=== PATIENT | male | born 1935 | race Caucasian/White ===

== ENCOUNTER 2019-03-17 09:11 | Day surgery (SDC) | payer OTHER, MEDICARE ==
[2019-03-12 10:16] VITALS: BMI 25.0
[2019-03-17] MEDS: CYCLOPENTOLATE 2% OPHTH SOLN 2 ML BOTTLE ONE ×3 (09:55→10:05)
[2019-03-17] MEDS: PHENYLEPHRINE 2.5% OPHTH SOLN 15 ML BOTTLE ONE ×3 (09:55→10:05)
[2019-03-17] MEDS: TROPICAMIDE 1% OPHTH SOLN 15 ML BOTTLE ONE ×3 (09:55→10:05)
[2019-03-17] MEDS: CIPROFLOXACIN 0.3% EYE DROPS 5 ML BOTTLE ONE ×3 (09:55→10:05)
[2019-03-17 10:04] VITALS: TEMP 98.1
[2019-03-17] MEDS ORDERED: BSS (NA/CA/MG/K) BALANCED SALT SOLUTION OPHTH SOLN 15 ML BOTTLE ONE (10:43)
[2019-03-17] MEDS ORDERED: LIDOCAINE 1% P/F 10 MG/ML VIAL ONE (10:43)
[2019-03-17] MEDS ORDERED: NEO/POLYMYX B SULF/DEXAMETH OPHTHALMIC 5ML BOTTLE ONE (10:44)
[2019-03-17] MEDS ORDERED: CARBACHOL 0.01% INTRA-OCULAR 1.5 ML VIAL ONE (10:44)
[2019-03-17] MEDS ORDERED: MIDAZOLAM HCL 2 MG/2 ML SINGLE DOSE VIAL ONE (10:53)
[2019-03-17 11:48] VITALS: BP 118/78; PULSE 73
--- NOTE | 2019-03-18 10:50 | OP ---
DATE OF OPERATION: 03/17/2019 OPERATIVE PROCEDURE: Lens Phacoemulsification with Posterior Chamber Intraocular Lens Placement, Right Eye PREOPERATIVE DIAGNOSIS: Visually Significant Cataract of Right Eye POSTOPERATIVE DIAGNOSIS: Visually Significant Cataract of Right Eye SURGEON: Alan Davis M.D. ANESTHESIA: MAC PROCEDURE: The patient was brought to the operating room and placed under monitored anesthesia care by Anesthesia. A drop of Tetracaine was then placed over the right eye. The patient was then prepped and draped in the usual sterile manner. A speculum was then placed over the right eye. The eye was then well irrigated with copious amounts of BSS (balanced salt solution). The operating microscope was then moved into position. A paracentesis was performed using a 15 degree blade. At this point 0.5 mL of 1% preservative free-lidocaine was injected into the anterior chamber. Amvisc plus was then injected into the anterior chamber. A clear corneal incision was then formed using a 2.2 mm keratome. A capsulorrhexis was then performed in a continuous circular fashion beginning with a cystotome completed with an Utratas forceps. Hydrodissection was then performed using BSS on a cannula. The phaco probe was then introduced through the corneal wound and the cataract was removed using the phaco chop technique. Approximately 3 seconds of absolute phaco time was used. The remaining cortex was then removed using irrigation and aspiration with an I/A probe. The capsule was then filled with regular Amvisc and the capsule was noted to be intact. A previously selected foldable posterior chamber intraocular lens was then injected into the capsule through the corneal wound using a lens injector. It was then dialed into position using a Sinskey hook. The Amvisc was then removed using irrigation and aspiration. Miostat was then injected through the paracentesis to constrict the pupil. The paracentesis and corneal wound were then hydrated and noted to be water tight. A drop of Maxitrol was then placed over the eye. The speculum was removed and clear shield was taped over the eye. The patient tolerated the procedure well and there were no surgical complications. The patient was asked to follow up in my office the next day. ALAN DAVIS M.D. [id number]
== END 2019-03-17 12:15 | disposition home or self-care (01) ==
LOC: FASU 09:11
PROVIDERS: ATTEND Ophthalmology
PROC: 08RJ3JZ Replacement of Right Lens with Synthetic Substitute, Percutaneous Approach (ICD-10-PCS; principal; 2019-03-17 10:30)
DX: H26.8 Other specified cataract (principal)

== ENCOUNTER 2019-03-18 17:06 | Emergency (ER) | payer OTHER, MEDICARE, BC ==
[2019-03-18 17:49] VITALS: BP 149/93; PULSE 78; TEMP 98; BMI 25.0
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
[2019-03-18 19:04] LABS: BASO % 0.9 % (0-2.0); EOS % 1.1 % (0-4.5); HEMATOCRIT 40.6 % (35.4-49); HEMOGLOBIN 13.5 GM/dl (11.7-16.9); LYMPH % 15.5 % (8-40); MCH 29.7 pg (25.7-33.7); MCHC 33.1 g/dl (32.0-35.9); MEAN CELL VOLUME 89.6 fl (80-96); MEAN PLT VOLUME 10.3 fl (7.5-11.1); MONO % 13.8 % (3.8-10.2); NEUT % 68.7 % (42.8-82.8); PLATELET COUNT 375 K/MM3 (134-434); RBC 4.54 M/mm3 (4.00-5.60); WHITE BLOOD COUNT 11.2 K/mm3 (4.0-10.8)
[2019-03-18 19:21] LABS: ALBUMIN 3.5 g/dl (3.4-5.0); BILIRUBIN,TOTAL 0.7 mg/dl (0.2-1); CALCIUM 9.2 mg/dl (8.5-10); CREATININE 0.9 mg/dl (0.55-1.3); POTASSIUM 3.7 mmol/L (3.5-5.1); TOT PROT 7.2 g/dl (6.4-8.2)
--- NOTE | 2019-03-18 20:24 | PDOC ---
*Physical Exam - Vital Signs Last Vital Signs Temp Pulse Resp BP Pulse Ox 98 F 78 20 149/93 98 03/18/19 17:07 03/18/19 17:07 03/18/19 17:07 03/18/19 17:07 03/18/19 17:07 ED Treatment Course - LABORATORY CBC & Chemistry Diagram: 03/18/19 18:42 03/18/19 18:24 - ADDITIONAL ORDERS Additional order review: Laboratory Results 03/18/19 03/18/19 03/18/19 18:24 18:24 18:24 Sodium 134 L Potassium 3.7 Chloride 97 L Carbon Dioxide 28 Anion Gap 9 BUN 16.0 Creatinine 0.9 Est GFR (CKD-EPI)AfAm 92.51 Est GFR (CKD-EPI)NonAf 79.82 Random Glucose 105 Calcium 9.2 Total Bilirubin 0.7 AST 28 ALT 19 Alkaline Phosphatase 88 Creatine Kinase 106 Troponin I < 0.03 Total Protein 7.2 Albumin 3.5 03/18/19 18:42 RBC 4.54 MCV 89.6 MCHC 33.1 RDW 15.0 D MPV 10.3 Neutrophils % 68.7 Lymphocytes % 15.5 Monocytes % 13.8 H D Eosinophils % 1.1 Basophils % 0.9 ED Progress Note - Progress Note Progress Note: 03/18/19 20:23 CARE this patient was transferred to [place] at 1900 hrs. Patient is an 83-year-old male who comes in complaining of bilateral leg edema. Patient does have a history of similar symptoms in the past. Patient has a work-up pending including CBC, comp, BNP, chest x-ray, ultrasound Doppler of his legs bilateral. Patient is chest x-ray read by me no acute pathology Patient's ultrasound Doppler was negative for DVT in either leg. Patient discharged well follow-up with his primary care doctor. Discharge - Discharge Information Problems reviewed: Yes Clinical Impression/Diagnosis: Lower extremity edema Disposition: HOME - Admission No - Follow up/Referral - Patient Discharge Instructions Additional Instructions: It is important you follow-up with your primary care doctor give him a call in the morning. Return to the emergency department immediately with ANY new, persistent or worsening symptoms. Continue any medications as previously prescribed by your physician. You should follow up with your primary doctor as soon as possible regarding today's emergency department visit. . Please make sure your doctor reviews the results of your emergency evaluation. Thank you for coming to the Emergency Department today for your care. It was a pleasure to see you today. Please note that your evaluation is INCOMPLETE until you follow-up with your doctor. - Post Discharge Activity
--- NOTE | 2019-03-19 13:03 | EKG ---
Test Reason : Blood Pressure : / mmHG Vent. Rate : 083 BPM Atrial Rate : 083 BPM P-R Int : 136 ms QRS Dur : 086 ms QT Int : 372 ms P-R-T Axes : 018 -22 -11 degrees QTc Int : 437 ms NORMAL SINUS RHYTHM NONSPECIFIC ST ABNORMALITY Confirmed by SARAHY ODOM MD ([id number]) on 03/19/2019 1:02:51 PM Referred By: LAURIE Confirmed By:SARAHY ODOM MD
== END 2019-03-18 20:53 | disposition home or self-care (01) ==
LOC: FER 17:06
DX: M79.89 Other specified soft tissue disorders (principal); I10 Essential (primary) hypertension; E11.9 Type 2 diabetes mellitus without complications; L98.8 Other specified disorders of the skin and subcutaneous tissue; E07.9 Disorder of thyroid, unspecified
CPT/HCPCS: 36415; 71045-TC-FY; 80053; 82550; 83880; 84484; 85025; 93005; 93970-TC; 99284-25

== ENCOUNTER 2019-04-01 17:04 | Emergency (ER) | payer BC, MEDICARE, OTHER ==
[2019-04-01 17:45] VITALS: BP 146/92; PULSE 93; TEMP 97.1; BMI 25.2
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
[2019-04-01] MEDS ORDERED: IBUPROFEN 600 MG TABLET (FP) PO ONE ×2 (20:45→20:47)
== END 2019-04-01 20:24 | disposition home or self-care (01) ==
LOC: FER 17:04
DX: M25.551 Pain in right hip (principal); I10 Essential (primary) hypertension; E11.9 Type 2 diabetes mellitus without complications; E03.9 Hypothyroidism, unspecified; F17.210 Nicotine dependence, cigarettes, uncomplicated; V43.52XA Car driver injured in collision with other type car in traffic accident, initial encounter; Y93.89 Activity, other specified; Y92.412 Parkway as the place of occurrence of the external cause
CPT/HCPCS: 70450-TC; 70486-TC; 71046-TC-FY; 72125-TC; 73523-TC-FY; 99283-25

== ENCOUNTER 2019-04-11 16:31 | Emergency (ER) | payer OTHER, MEDICARE, BC ==
[2019-04-11] MEDS ORDERED: ACETAMINOPHEN 325 MG TABLET (FP) PO ONE (17:01)
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
[2019-04-11 17:44] VITALS: BP 159/102; PULSE 93; TEMP 97.7; BMI 25.7
[2019-04-11] MEDS ORDERED: ACETAMINOPHEN 500 MG TABLET (FP) ONE (17:47)
[2019-04-11] MEDS ORDERED: KETOROLAC TROMETHAMINE 60 MG/2 ML VIAL IM ONE (18:12)
[2019-04-11] MEDS ORDERED: KETOROLAC TROMETHAMINE 15 MG/ML VIAL ONE (18:16)
== END 2019-04-11 19:00 | disposition home or self-care (01) ==
LOC: FER 16:31
PROC: 3E0233Z Introduction of Anti-inflammatory into Muscle, Percutaneous Approach (ICD-10-PCS; principal; 2019-04-11)
DX: M25.551 Pain in right hip (principal); W18.39XA Other fall on same level, initial encounter; Y93.89 Activity, other specified; Y92.481 Parking lot as the place of occurrence of the external cause; F17.210 Nicotine dependence, cigarettes, uncomplicated; I10 Essential (primary) hypertension; E07.9 Disorder of thyroid, unspecified
CPT/HCPCS: 73523-TC-FY; 99281-25

== ENCOUNTER 2019-06-09 08:53 | Day surgery (SDC) | payer OTHER ==
[2019-06-04 15:02] VITALS: BMI 23.3
[2019-06-09] MEDS: CYCLOPENTOLATE 2% OPHTH SOLN 2 ML BOTTLE ONE ×3 (09:20→09:30)
[2019-06-09] MEDS: PHENYLEPHRINE 2.5% OPHTH SOLN 15 ML BOTTLE ONE ×3 (09:20→09:30)
[2019-06-09] MEDS: TROPICAMIDE 1% OPHTH SOLN 15 ML BOTTLE ONE ×3 (09:20→09:30)
[2019-06-09] MEDS: CIPROFLOXACIN 0.3% EYE DROPS 5 ML BOTTLE ONE ×3 (09:20→09:30)
[2019-06-09] MEDS ORDERED: MIDAZOLAM HCL 2 MG/2 ML SINGLE DOSE VIAL ONE (09:59)
[2019-06-09] MEDS ORDERED: CARBACHOL 0.01% INTRA-OCULAR 1.5 ML VIAL ONE (10:07)
[2019-06-09] MEDS ORDERED: BSS (NA/CA/MG/K) BALANCED SALT SOLUTION OPHTH SOLN 15 ML BOTTLE ONE (10:07)
[2019-06-09] MEDS ORDERED: LIDOCAINE 1% P/F 10 MG/ML VIAL ONE (10:07)
[2019-06-09] MEDS ORDERED: NEO/POLYMYX B SULF/DEXAMETH OPHTHALMIC 5ML BOTTLE ONE (10:07)
[2019-06-09] MEDS ORDERED: TETRACAINE 0.5% OPHTH SOLN 2 ML BOTTLE ONE (10:07)
[2019-06-09 12:32] VITALS: BP 136/69; PULSE 62; TEMP 98.4
--- NOTE | 2019-06-09 16:52 | OP ---
DATE OF OPERATION: 06/09/2019 OPERATIVE PROCEDURE: Lysis of Posterior Iris Lens Synechia and Lens Phacoemulsification with Posterior Chamber Intraocular Lens Placement, Left Eye PREOPERATIVE DIAGNOSIS: Visually Significant Cataract and Posterior Synechia of Left Eye POSTOPERATIVE DIAGNOSIS: Visually Significant Cataract and Posterior Synechia of Left Eye SURGEON: Alan Davis M.D. ANESTHESIA: MAC ANESTHESIOLOGIST: PROCEDURE: The patient was brought to the operating room and placed under monitored anesthesia care by Anesthesia. A drop of Tetracaine was then placed over the left eye. The patient was then prepped and draped in the usual sterile manner. A speculum was then placed over the left eye. The eye was then well irrigated with copious amounts of BSS (balanced salt solution). The operating microscope was then moved into position. A paracentesis was performed using a 15 degree blade. At this point, 0.5 mL of 1% preservative-free lidocaine was injected into the anterior chamber. Amvisc plus was then injected into the anterior chamber. A clear corneal incision was then formed using a 2.2 mm keratome. A cyclodialysis spatula was then used to break the posterior synechia. Two [employer] EXTENDED STAYSglen iris hooks were then used to stretch the iris. More Amvisc plus was then injected into the anterior chamber. A capsulorrhexis was then performed in a continuous circular fashion beginning with a cystotome and completed with an Utrata's forceps. Hydrodissection was then performed using BSS on a cannula. The phaco probe was then introduced through the corneal wound and the cataract was removed using the phaco chop technique. Approximately 3 seconds of absolute phaco time was used. The remaining cortex was then removed using irrigation and aspiration with an I/A probe. The capsule was then filled with regular Amvisc and the capsule was noted to be intact. A previously selected foldable posterior chamber intraocular lens was then injected into the capsule through the corneal wound using a lens injector. It was then dialed into position using a [place] hook. The Amvisc was then removed using irrigation and aspiration. Miostat was then injected through the paracentesis to constrict the pupil. The paracentesis and corneal wound were then hydrated and noted to be water tight. A drop of Maxitrol was then placed over the eye. The speculum was removed and clear shield was taped over the eye. The patient tolerated the procedure well and there were no surgical complications. The patient was asked to follow up in my office the next day. ALAN DAVIS M.D. [id number]
== END 2019-06-09 12:05 | disposition home or self-care (01) ==
LOC: FASU 08:53
PROVIDERS: ATTEND Ophthalmology
PROC: 08RK3JZ Replacement of Left Lens with Synthetic Substitute, Percutaneous Approach (ICD-10-PCS; principal; 2019-06-09 10:29)
DX: H26.8 Other specified cataract (principal); H21.542 Posterior synechiae (iris), left eye

== ENCOUNTER 2020-04-28 16:04 | Emergency (ER) | payer OTHER, BC | END 2020-04-28 17:49 | disposition home or self-care (01) | LOC: JVIRT 16:04 | DX: Z11.52 Encounter for screening for COVID-19 (principal) | CPT/HCPCS: 36415; 86769; C9803; G2012-GT; U0003 ==

== ENCOUNTER 2020-10-03 01:34 | Emergency (ER) | payer OTHER ==
[2020-10-03 01:57] VITALS: BP 139/73; PULSE 76; TEMP 98.7; BMI 24.7
[2020-10-03] MEDS ORDERED: ACETAMINOPHEN 500 MG TABLET (FP) ONE (03:23)
[2020-10-03] MEDS ORDERED: ACETAMINOPHEN 500 MG TABLET (FP) PO ONE (03:23)
== END 2020-10-03 03:30 | disposition home or self-care (01) ==
LOC: FER 01:34
DX: S62.645A Nondisplaced fracture of proximal phalanx of left ring finger, initial encounter for closed fracture (principal)
CPT/HCPCS: 72050-TC-FY; 73140-TC-LT-FY; 73523-TC-FY; 99285-25

== ENCOUNTER 2020-11-30 02:03 | Inpatient (IN) | payer OTHER ==
[2020-11-30] MEDS: SODIUM CHLORIDE 1,000 ML IV SCH ×2 (03:00→22:25)
[2020-11-30 04:06] LABS: BASO % 1.1 % (0-2.0); EOS % 1.9 % (0-4.5); HEMATOCRIT 38.7 % (35.4-49); HEMOGLOBIN 13.3 GM/dL (11.7-16.9); MCH 30.6 pg (25.7-33.7); MCHC 34.3 g/dl (32.0-35.9); MEAN CELL VOLUME 89.4 fl (80-96); MEAN PLT VOLUME 9.6 fl (7.5-11.1); PLATELET COUNT 297 10^3/uL (134-434); RBC 4.33 M/mm3 (4.00-5.60); RDW 15.8 % (11.9-15.9); WHITE BLOOD COUNT 8.7 K/mm3 (4.0-10.0)
[2020-11-30 04:15] LABS: INR 0.92 (0.83-1.09); PROTHROMBIN TIME (PATIENT) 11.3 SEC (9.7-13.0)
[2020-11-30 04:27] LABS: CHLORIDE 98 mmol/L (98-107); SODIUM 133 mmol/L (136-145)
[2020-11-30 04:30] LABS: ALBUMIN 3.2 g/dl (3.4-5.0); ANION GAP 13 MMOL/L (8-16); BLOOD UREA NITROGEN 26.1 mg/dL (7-18); CALCIUM 8.5 mg/dL (8.5-10.1); CO2 22 mmol/L (21-32); GLUCOSE,RANDOM 69 mg/dL (74-106)
[2020-11-30 04:33] LABS: SGOT/AST 22 U/L (15-37); SGPT/ALT 23 U/L (13-61)
[2020-11-30 04:35] LABS: BILIRUBIN,TOTAL 0.3 mg/dL (0.2-1); TOT PROT 7.9 g/dl (6.4-8.2)
[2020-11-30 04:36] LABS: ALK PHOS 87 U/L (45-117)
[2020-11-30] MEDS ORDERED: PATIENT'S OWN MEDICATION (NON-FORMULARY) (Olmesartan/Hydrochlorothiazide [Benicar Hct 40-2 PO SCH (10:15)
[2020-11-30] MEDS ORDERED: LOSARTAN POTASSIUM 50 MG TABLET PO SCH (10:30)
[2020-11-30] MEDS ORDERED: HYDROCHLOROTHIAZIDE 25 MG TABLET (FP) PO SCH (10:30)
[2020-11-30] MEDS: INSULIN (NOVOLOG) ASPART 100 UNITS/ML 10ML VIAL SQ SCH ×3 (10:44→22:23)
[2020-11-30 11:17] LABS: BASO % 2.5 % (0-2.0); EOS % 5.3 % (0-4.5); HEMATOCRIT 37.6 % (35.4-49); HEMOGLOBIN 12.1 GM/dl (11.7-16.9); LYMPH % 20.9 % (8-40); MCH 29.7 pg (25.7-33.7); MCHC 32.3 g/dl (32.0-35.9); MEAN CELL VOLUME 91.8 fl (80-96); MEAN PLT VOLUME 9.4 fl (7.5-11.1); MONO % 19.2 % (3.8-10.2); NEUT % 52.1 % (42.8-82.8); PLATELET COUNT 294 10^3/uL (134-434); RBC 4.09 M/mm3 (4.00-5.60); WHITE BLOOD COUNT 7.3 K/mm3 (4.0-10.8)
[2020-11-30 11:36] LABS: BILIRUBIN,TOTAL 0.5 mg/dl (0.2-1); CALCIUM 8.7 mg/dl (8.5-10); MAGNESIUM 1.5 mg/dL (1.8-2.4); TOT PROT 6.8 g/dl (6.4-8.2)
[2020-12-01 00:23] VITALS: BMI 26.3
[2020-12-01] MEDS: SODIUM CHLORIDE 1,000 ML IV SCH ×2 (00:44→06:57)
[2020-12-01] MEDS: LEVOTHYROXINE NA 50 MCG TABLET (FP) PO SCH (06:50)
[2020-12-01] MEDS ORDERED: INSULIN (NOVOLOG) ASPART 100 UNITS/ML 10ML VIAL SQ SCH (07:00)
[2020-12-01] MEDS ORDERED: LEVOTHYROXINE NA 50 MCG TABLET (FP) PO SCH (07:00)
[2020-12-01 09:34] LABS: HEMATOCRIT 36.9 % (35.4-49); HEMOGLOBIN 12.5 GM/dL (11.7-16.9); MCH 30.7 pg (25.7-33.7); MCHC 33.8 g/dl (32.0-35.9); MEAN CELL VOLUME 90.9 fl (80-96); MEAN PLT VOLUME 9.6 fl (7.5-11.1); PLATELET COUNT 292 10^3/uL (134-434); RBC 4.06 M/mm3 (4.00-5.60); RDW 15.9 % (11.9-15.9); WHITE BLOOD COUNT 6.1 K/mm3 (4.0-10.0)
[2020-12-01] MEDS: LOSARTAN POTASSIUM 50 MG TABLET PO SCH (10:10)
[2020-12-01] MEDS: HYDROCHLOROTHIAZIDE 25 MG TABLET (FP) PO SCH (10:10)
[2020-12-01 10:48] LABS: ANISOCYTOSIS 1+; MACROCYTOSIS 1+; PLATELET ESTIMATE NORMAL
[2020-12-01 12:34] LABS: BLOOD UREA NITROGEN 14.5 mg/dL (7-18); CALCIUM 8.3 mg/dL (8.5-10.1); MAGNESIUM 1.8 mg/dL (1.8-2.4)
[2020-12-01 12:38] LABS: CREATININE 0.9 mg/dL (0.55-1.3)
[2020-12-02] MEDS: LEVOTHYROXINE NA 50 MCG TABLET (FP) PO SCH (06:10)
[2020-12-02] MEDS: HYDROCHLOROTHIAZIDE 25 MG TABLET (FP) PO SCH (09:16)
[2020-12-02] MEDS: LOSARTAN POTASSIUM 50 MG TABLET PO SCH (09:16)
[2020-12-02 09:35] LABS: HEMATOCRIT 38.8 % (35.4-49); HEMOGLOBIN 13.1 GM/dL (11.7-16.9); MCH 30.8 pg (25.7-33.7); MCHC 33.7 g/dl (32.0-35.9); MEAN CELL VOLUME 91.4 fl (80-96); MEAN PLT VOLUME 9.6 fl (7.5-11.1); PLATELET COUNT 301 10^3/uL (134-434); RBC 4.24 M/mm3 (4.00-5.60); RDW 15.8 % (11.9-15.9); WHITE BLOOD COUNT 6.7 K/mm3 (4.0-10.0)
[2020-12-02 10:12] LABS: BLOOD UREA NITROGEN 13.8 mg/dL (7-18); CALCIUM 8.9 mg/dL (8.5-10.1)
[2020-12-02 10:17] LABS: CREATININE 0.9 mg/dL (0.55-1.3)
[2020-12-02 14:19] VITALS: BP 112/76; PULSE 74; TEMP 97.6
== END 2020-12-02 15:39 | disposition home or self-care (01) | DRG 379 ==
LOC: FER 02:03 → FM/S 07:23 → J6S 20:34
PROVIDERS: ADMIT Internal Medicine; ATTEND Internal Medicine
DX: K57.91 Diverticulosis of intestine, part unspecified, without perforation or abscess with bleeding (principal); I10 Essential (primary) hypertension; E03.9 Hypothyroidism, unspecified; R35.0 Frequency of micturition; N40.1 Benign prostatic hyperplasia with lower urinary tract symptoms; F12.90 Cannabis use, unspecified, uncomplicated
CPT/HCPCS: 36415; 71045-TC-FY; 80048; 80053; 82272; 82550; 82962; 83735; 84484; 85025; 85027; 85610; 85730; 86850; 86900; 86901; 93005; 99285-25; C9803; U0003; U0005

== ENCOUNTER 2021-10-14 01:52 | Emergency (ER) | payer OTHER ==
[2021-10-14 02:02] VITALS: BP 132/75; PULSE 69; TEMP 97.9; BMI 24.2
[2021-10-14 04:20] LABS: BASO % 0.9 % (0-2.0); HEMATOCRIT 39.9 % (35.4-49); HEMOGLOBIN 13.5 GM/dL (11.7-16.9); LYMPH % 23.4 % (8-40); MCH 30.6 pg (25.7-33.7); MCHC 33.7 g/dl (32.0-35.9); MEAN CELL VOLUME 90.8 fl (80-96); MONO % 12.1 % (3.8-10.2); NEUT % 62.6 % (42.8-82.8); PH,URINE 7.5 (5.0-8.0); PLATELET COUNT 321 10^3/uL (134-434); RBC 4.39 M/mm3 (4.00-5.60); RDW 16.6 % (11.9-15.9); URINE APPEARANCE CLOUDY; URINE BILIRUBIN NEGATIVE (NEGATIVE); URINE COLOR YELLOW; URINE GLUCOSE (UA) NEGATIVE (NEGATIVE); URINE KETONE NEGATIVE (NEGATIVE); URINE LEUK ESTERASE NEGATIVE (NEGATIVE); URINE NITRITE NEGATIVE (NEGATIVE); URINE PROTEIN NEGATIVE (NEGATIVE); WHITE BLOOD COUNT 8.6 K/mm3 (4.0-10.0)
[2021-10-14 04:46] LABS: CALCIUM 9.2 mg/dL (8.5-10.1)
[2021-10-14 04:47] LABS: ALBUMIN 3.1 g/dl (3.4-5.0); BLOOD UREA NITROGEN 12.9 mg/dL (7-18)
[2021-10-14 04:50] LABS: CREATININE 0.9 mg/dL (0.55-1.3)
[2021-10-14 04:51] LABS: BILIRUBIN,TOTAL 0.2 mg/dL (0.2-1); TOT PROT 9.4 g/dl (6.4-8.2)
== END 2021-10-14 05:13 | disposition left against medical advice (07) ==
LOC: JER 01:52
DX: F10.99 Alcohol use, unspecified with unspecified alcohol-induced disorder (principal)
CPT/HCPCS: 36415; 70450-TC; 72125-TC; 80053; 81003; 84484; 85025; 87086; 87186; 99281-25

== ENCOUNTER 2021-11-16 22:28 | Inpatient (IN) | payer OTHER ==
[2021-11-17] MEDS ORDERED: ACETAMINOPHEN 1000 MG/100 ML BAG IVPB ONE (00:11)
[2021-11-17] MEDS ORDERED: ACETAMINOPHEN INJECTION 100 ML IVPB ONE (00:53)
[2021-11-17 01:05] LABS: BASO % 0.4 % (0-2.0); EOS % 0.3 % (0-4.5); HEMATOCRIT 37.3 % (35.4-49); HEMOGLOBIN 12.8 GM/dL (11.7-16.9); LYMPH % 12.3 % (8-40); MCH 31.5 pg (25.7-33.7); MCHC 34.3 g/dl (32.0-35.9); MEAN CELL VOLUME 91.6 fl (80-96); MEAN PLT VOLUME 9.6 fl (7.5-11.1); MONO % 10.1 % (3.8-10.2); NEUT % 76.9 % (42.8-82.8); PLATELET COUNT 274 10^3/uL (134-434); RBC 4.07 M/mm3 (4.00-5.60); RDW 16.7 % (11.9-15.9)
[2021-11-17 01:16] LABS: INR 0.94 (0.83-1.09); PROTHROMBIN TIME (PATIENT) 10.8 SEC (9.7-13.0)
[2021-11-17 01:18] LABS: ACTIVATED PTT 26.7 SECONDS (25.2-36.5)
[2021-11-17 01:22] LABS: CHLORIDE 105 mmol/L (98-107); SODIUM 138 mmol/L (136-145)
[2021-11-17 01:24] LABS: ANION GAP 10 MMOL/L (8-16); CALCIUM 8.8 mg/dL (8.5-10.1); CO2 23 mmol/L (21-32); GLUCOSE,RANDOM 78 mg/dL (74-106)
[2021-11-17 01:25] LABS: ALBUMIN 2.9 g/dl (3.4-5.0); BLOOD UREA NITROGEN 38.7 mg/dL (7-18)
[2021-11-17 01:27] LABS: CREATININE 3.2 mg/dL (0.55-1.3); SGPT/ALT 20 U/L (13-61)
[2021-11-17 01:28] LABS: SGOT/AST 28 U/L (15-37)
[2021-11-17 01:29] LABS: BILIRUBIN,TOTAL 0.4 mg/dL (0.2-1); TOT PROT 9.1 g/dl (6.4-8.2)
[2021-11-17 01:30] LABS: ALK PHOS 113 U/L (45-117)
[2021-11-17] MEDS ORDERED: SODIUM CHLORIDE 0.9% 500 ML INFUS.BAG IV ONE (01:52)
[2021-11-17] MEDS ORDERED: SODIUM CHLORIDE 1,000 ML IV SCH (04:30)
[2021-11-17] MEDS: ALBUTEROL SO4 2.5/IPRATROPIUM 0.5 INH SOL 3 ML VIAL.NEB. NEB SCH ×3 (05:21→16:24)
[2021-11-17 06:08] LABS: EPI CELLS 26 /uL (0-25.1); HYALINE CASTS 17 /uL (0-3.1); URINE APPEARANCE CLOUDY; URINE BACTERIA 173 /uL (0-1359); URINE BILIRUBIN NEGATIVE (NEGATIVE); URINE COLOR YELLOW; URINE GLUCOSE (UA) NEGATIVE (NEGATIVE); URINE KETONE TRACE (NEGATIVE); URINE LEUK ESTERASE 1+ (NEGATIVE); URINE NITRITE NEGATIVE (NEGATIVE); URINE PROTEIN 1+ (NEGATIVE); URINE RBC 3 /uL (0-23.9); URINE UROBILINOGEN 0.2 mg/dL (0.2-1.0); URINE WBC 6 /uL (0-25.8)
[2021-11-17] MEDS ORDERED: TAMSULOSIN HCL 0.4 MG CAP ONE (07:36)
[2021-11-17] MEDS ORDERED: LEVOTHYROXINE NA 50 MCG TABLET (FP) ONE (07:36)
[2021-11-17] MEDS: TAMSULOSIN HCL 0.4 MG CAP PO SCH (07:50)
[2021-11-17] MEDS: LEVOTHYROXINE NA 50 MCG TABLET (FP) PO SCH (07:50)
[2021-11-17 08:27] LABS: BASO % 0.8 % (0-2.0); EOS % 0.9 % (0-4.5); HEMOGLOBIN 11.9 GM/dL (11.7-16.9); LYMPH % 24.1 % (8-40); MCH 31.5 pg (25.7-33.7); MEAN CELL VOLUME 92.5 fl (80-96); MEAN PLT VOLUME 9.5 fl (7.5-11.1); MONO % 16.5 % (3.8-10.2); NEUT % 57.7 % (42.8-82.8); PLATELET COUNT 274 10^3/uL (134-434); RBC 3.78 M/mm3 (4.00-5.60); RDW 16.5 % (11.9-15.9); SODIUM 139 mmol/L (136-145); WHITE BLOOD COUNT 7.7 K/mm3 (4.0-10.0)
[2021-11-17 08:28] LABS: CALCIUM 8.1 mg/dL (8.5-10.1); CO2 23 mmol/L (21-32)
[2021-11-17 08:29] LABS: MAGNESIUM 1.8 mg/dL (1.8-2.4)
[2021-11-17 08:30] LABS: ALBUMIN 2.4 g/dl (3.4-5.0); BLOOD UREA NITROGEN 43.7 mg/dL (7-18); GLUCOSE,RANDOM 98 mg/dL (74-106)
[2021-11-17 08:33] LABS: CHOLESTEROL 101 mg/dL (50-200); CREATININE 3.5 mg/dL (0.55-1.3); PHOSPHOROUS 4.7 mg/dL (2.5-4.9); SGOT/AST 30 U/L (15-37); SGPT/ALT 18 U/L (13-61); TOT PROT 7.9 g/dl (6.4-8.2); TRIGLYCERIDES 100 mg/dL (0-150)
[2021-11-17 08:34] LABS: BILIRUBIN,TOTAL 0.6 mg/dL (0.2-1); LDL CHOLESTEROL (ONLY SJRH) 44 mg/dL (5-100)
[2021-11-17 08:35] LABS: ALK PHOS 96 U/L (45-117)
[2021-11-17 08:36] LABS: HDL CHOLESTEROL 53 mg/dL (40-60)
[2021-11-17 08:48] LABS: ANION GAP 7 MMOL/L (8-16); CHLORIDE 109 mmol/L (98-107)
[2021-11-17] MEDS ORDERED: ALBUTEROL SO4 2.5/IPRATROPIUM 0.5 INH SOL 3 ML VIAL.NEB. NEB ONE (09:13)
[2021-11-17] MEDS ORDERED: DOXYCYCLINE HYCLATE 100 MG CAPSULE PO ONE (09:14)
[2021-11-17] MEDS ORDERED: amLODIPine BESYLATE 5 MG TABLET (FP) ONE (09:14)
[2021-11-17] MEDS: amLODIPine BESYLATE 5 MG TABLET (FP) PO SCH (09:24)
[2021-11-17] MEDS ORDERED: oxyCODONE HCL 5 MG TABLET PO ONE ×2 (09:41→22:33)
[2021-11-17] MEDS ORDERED: LIDOCAINE 5% TOPICAL PATCH ONE (09:51)
[2021-11-17] MEDS ORDERED: oxyCODONE HCL 5 MG TABLET ONE (09:56)
[2021-11-17] MEDS ORDERED: DOXYCYCLINE HYCLATE 100 MG CAPSULE PO SCH ×2 (10:00→22:00)
[2021-11-17] MEDS: LIDOCAINE 5% TOPICAL PATCH TP SCH (10:14)
[2021-11-17] MEDS ORDERED: hydrALAZINE HCL 25 MG TABLET (FP) ONE ×2 (11:53→13:52)
[2021-11-17] MEDS: hydrALAZINE HCL 25 MG TABLET (FP) PO SCH ×3 (11:58→22:42)
[2021-11-17] MEDS: SODIUM CHLORIDE 0.45% 1,000 ML IV SCH (11:58)
[2021-11-17] MEDS ORDERED: HEPARIN NA (PORCINE) 5,000 UNITS/ML 1ML VIAL ONE ×2 (13:52→14:00)
[2021-11-17] MEDS: HEPARIN NA (PORCINE) 5,000 UNITS/ML 1ML VIAL SQ SCH ×2 (14:03→22:48)
[2021-11-17 17:36] LABS: COCAINE, UR NEGATIVE (NEGATIVE); PHENCYCLIDINE,URINE NEGATIVE (NEGATIVE); URINE BENZODIAZEPINES NEGATIVE (NEGATIVE)
[2021-11-17 17:37] LABS: OPIATES, URI NEGATIVE (NEGATIVE); URINE BARBITURATES NEGATIVE (NEGATIVE)
[2021-11-17 17:40] LABS: METHADONE, UR NEGATIVE (NEGATIVE)
[2021-11-17 17:42] LABS: URINE AMPHETAMINES NEGATIVE (NEGATIVE)
[2021-11-17] MEDS: DOXYCYCLINE HYCLATE 100 MG CAPSULE PO SCH (20:29)
[2021-11-17] MEDS: LIDOCAINE PATCH REMOVAL MC SCH (22:41)
[2021-11-18 05:53] VITALS: BMI 23.3
[2021-11-18] MEDS: HEPARIN NA (PORCINE) 5,000 UNITS/ML 1ML VIAL SQ SCH ×3 (06:48→21:27)
[2021-11-18] MEDS: hydrALAZINE HCL 25 MG TABLET (FP) PO SCH ×3 (06:50→21:26)
[2021-11-18] MEDS: LEVOTHYROXINE NA 50 MCG TABLET (FP) PO SCH (06:50)
[2021-11-18 07:06] LABS: CARCINOEMBRYONIC ANTIGEN 1.3 ng/mL (0.0-4.7); IGA IMMUNOGLOBULIN 65 mg/dL (61-437); IGG QN IMMUNOGLOBULIN 4146 mg/dL (603-1613); IGM QN SERUM 9 mg/dL (15-143)
[2021-11-18] MEDS: ACETAMINOPHEN 325 MG TABLET (FP) PO PRN (09:31)
[2021-11-18] MEDS: LIDOCAINE 5% TOPICAL PATCH TP SCH (09:33)
[2021-11-18] MEDS: TAMSULOSIN HCL 0.4 MG CAP PO SCH (09:33)
[2021-11-18] MEDS: amLODIPine BESYLATE 5 MG TABLET (FP) PO SCH ×2 (09:33→21:26)
[2021-11-18] MEDS: DOXYCYCLINE HYCLATE 100 MG CAPSULE PO SCH ×2 (09:44→17:56)
[2021-11-18 10:18] LABS: BASO % 0.9 % (0-2.0); EOS % 1.7 % (0-4.5); HEMATOCRIT 37.3 % (35.4-49); HEMOGLOBIN 12.6 GM/dL (11.7-16.9); LYMPH % 16.8 % (8-40); MCH 31.2 pg (25.7-33.7); MCHC 33.9 g/dl (32.0-35.9); MEAN PLT VOLUME 10.1 fl (7.5-11.1); MONO % 17.6 % (3.8-10.2); PLATELET COUNT 293 10^3/uL (134-434); RBC 4.05 M/mm3 (4.00-5.60); RDW 16.4 % (11.9-15.9); WHITE BLOOD COUNT 9.1 K/mm3 (4.0-10.0)
[2021-11-18 10:39] LABS: CALCIUM 8.8 mg/dL (8.5-10.1)
[2021-11-18 10:40] LABS: ALBUMIN 2.6 g/dl (3.4-5.0); BLOOD UREA NITROGEN 44.5 mg/dL (7-18); MAGNESIUM 1.5 mg/dL (1.8-2.4)
[2021-11-18 10:42] LABS: CREATININE 3.4 mg/dL (0.55-1.3)
[2021-11-18 10:43] LABS: PHOSPHOROUS 3.5 mg/dL (2.5-4.9)
[2021-11-18 10:44] LABS: BILIRUBIN,TOTAL 0.4 mg/dL (0.2-1); TOT PROT 8.5 g/dl (6.4-8.2)
[2021-11-18] MEDS: SODIUM CHLORIDE 0.45% 1,000 ML IV SCH (10:45)
[2021-11-18] MEDS: ALBUTEROL SO4 2.5/IPRATROPIUM 0.5 INH SOL 3 ML VIAL.NEB. NEB SCH ×3 (11:28→20:46)
[2021-11-18] MEDS: traMADol HCL 50 MG TABLET PO PRN ×2 (11:58→21:28)
[2021-11-18] MEDS ORDERED: MAGNESIUM SULF 50% (8.12 MEQ/2 ML-1 GM VIAL) IVPB ONE (17:36)
[2021-11-18] MEDS: LIDOCAINE PATCH REMOVAL MC SCH (21:27)
[2021-11-19] MEDS: LEVOTHYROXINE NA 50 MCG TABLET (FP) PO SCH (06:43)
[2021-11-19] MEDS: hydrALAZINE HCL 25 MG TABLET (FP) PO SCH ×3 (06:43→21:06)
[2021-11-19] MEDS: HEPARIN NA (PORCINE) 5,000 UNITS/ML 1ML VIAL SQ SCH ×3 (06:43→21:06)
[2021-11-19] MEDS: ALBUTEROL SO4 2.5/IPRATROPIUM 0.5 INH SOL 3 ML VIAL.NEB. NEB SCH ×4 (07:20→20:05)
[2021-11-19 07:31] LABS: HEMATOCRIT 33.8 % (35.4-49); HEMOGLOBIN 11.4 GM/dL (11.7-16.9); MCH 30.8 pg (25.7-33.7); MCHC 33.7 g/dl (32.0-35.9); MEAN CELL VOLUME 91.5 fl (80-96); MEAN PLT VOLUME 10.5 fl (7.5-11.1); PLATELET COUNT 269 10^3/uL (134-434); RDW 16.1 % (11.9-15.9); WHITE BLOOD COUNT 7.3 K/mm3 (4.0-10.0)
[2021-11-19 07:57] LABS: CALCIUM 8.6 mg/dL (8.5-10.1)
[2021-11-19 07:58] LABS: ALBUMIN 2.3 g/dl (3.4-5.0); BLOOD UREA NITROGEN 36.4 mg/dL (7-18); MAGNESIUM 1.6 mg/dL (1.8-2.4)
[2021-11-19 08:00] LABS: PHOSPHOROUS 4.6 mg/dL (2.5-4.9)
[2021-11-19 08:01] LABS: CREATININE 3.1 mg/dL (0.55-1.3)
[2021-11-19 08:02] LABS: BILIRUBIN,TOTAL 0.2 mg/dL (0.2-1); TOT PROT 7.7 g/dl (6.4-8.2)
[2021-11-19] MEDS: TAMSULOSIN HCL 0.4 MG CAP PO SCH (08:36)
[2021-11-19] MEDS ORDERED: MAGNESIUM SULF 50% (8.12 MEQ/2 ML-1 GM VIAL) IVPB ONE (09:05)
[2021-11-19] MEDS ORDERED: metroNIDAZOLE 1% TOPICAL CREAM 60 GM/TUBE TP SCH (10:00)
[2021-11-19] MEDS: SODIUM CHLORIDE 0.45% 1,000 ML IV SCH (10:28)
[2021-11-19] MEDS: LIDOCAINE 5% TOPICAL PATCH TP SCH (10:37)
[2021-11-19] MEDS: DOXYCYCLINE HYCLATE 100 MG CAPSULE PO SCH ×2 (10:37→17:56)
[2021-11-19] MEDS: amLODIPine BESYLATE 5 MG TABLET (FP) PO SCH ×2 (10:37→21:06)
[2021-11-19 11:31] LABS: RETICULOCYTES 0.57 % (0.5-1.5)
[2021-11-19] MEDS: traMADol HCL 50 MG TABLET PO PRN (13:41)
[2021-11-19] MEDS: LIDOCAINE PATCH REMOVAL MC SCH (21:06)
[2021-11-20] MEDS: HEPARIN NA (PORCINE) 5,000 UNITS/ML 1ML VIAL SQ SCH ×3 (05:29→21:56)
[2021-11-20] MEDS: hydrALAZINE HCL 25 MG TABLET (FP) PO SCH ×3 (05:30→21:55)
[2021-11-20] MEDS: LEVOTHYROXINE NA 50 MCG TABLET (FP) PO SCH (06:07)
[2021-11-20] MEDS: TAMSULOSIN HCL 0.4 MG CAP PO SCH (08:26)
[2021-11-20] MEDS: ALBUTEROL SO4 2.5/IPRATROPIUM 0.5 INH SOL 3 ML VIAL.NEB. NEB SCH ×4 (09:05→20:48)
[2021-11-20] MEDS: LIDOCAINE 5% TOPICAL PATCH TP SCH (10:20)
[2021-11-20] MEDS: DOXYCYCLINE HYCLATE 100 MG CAPSULE PO SCH ×2 (10:21→17:28)
[2021-11-20] MEDS: amLODIPine BESYLATE 5 MG TABLET (FP) PO SCH ×2 (10:21→21:55)
[2021-11-20 11:13] LABS: HEMATOCRIT 34.7 % (35.4-49); HEMOGLOBIN 11.8 GM/dL (11.7-16.9); MCH 31.3 pg (25.7-33.7); MCHC 34.2 g/dl (32.0-35.9); MEAN CELL VOLUME 91.5 fl (80-96); MEAN PLT VOLUME 9.5 fl (7.5-11.1); PLATELET COUNT 307 10^3/uL (134-434); RBC 3.79 M/mm3 (4.00-5.60); RDW 16.1 % (11.9-15.9); WHITE BLOOD COUNT 7.9 K/mm3 (4.0-10.0)
[2021-11-20 11:49] LABS: ALBUMIN 2.5 g/dl (3.4-5.0); BLOOD UREA NITROGEN 31.3 mg/dL (7-18); CALCIUM 8.8 mg/dL (8.5-10.1); MAGNESIUM 1.7 mg/dL (1.8-2.4)
[2021-11-20 11:52] LABS: CREATININE 2.6 mg/dL (0.55-1.3); PHOSPHOROUS 4.3 mg/dL (2.5-4.9)
[2021-11-20 11:54] LABS: BILIRUBIN,TOTAL 0.2 mg/dL (0.2-1); TOT PROT 8.8 g/dl (6.4-8.2)
[2021-11-20] MEDS: BETAMETHASONE DIPR 0.05% CREAM 15 GM TUBE TP SCH ×3 (15:36→21:55)
[2021-11-20] MEDS: metroNIDAZOLE 0.75% TOPICAL GEL 45 GM TUBE TP SCH ×3 (15:37→21:56)
[2021-11-20] MEDS: LACTATED RINGERS SOLUTION 1,000 ML/1,000 ML INFUS.BAG IV SCH (15:37)
[2021-11-20] MEDS ORDERED: MAGNESIUM SULF 50% (8.12 MEQ/2 ML-1 GM VIAL) IVPB ONE (16:29)
[2021-11-20] MEDS: LIDOCAINE PATCH REMOVAL MC SCH (21:56)
[2021-11-21] MEDS: LACTATED RINGERS SOLUTION 1,000 ML/1,000 ML INFUS.BAG IV SCH ×3 (02:19→18:06)
[2021-11-21] MEDS: HEPARIN NA (PORCINE) 5,000 UNITS/ML 1ML VIAL SQ SCH ×4 (06:18→22:40)
[2021-11-21] MEDS: hydrALAZINE HCL 25 MG TABLET (FP) PO SCH ×3 (06:18→22:26)
[2021-11-21] MEDS: LEVOTHYROXINE NA 50 MCG TABLET (FP) PO SCH (06:18)
[2021-11-21] MEDS: BETAMETHASONE DIPR 0.05% CREAM 15 GM TUBE TP SCH ×3 (06:18→22:37)
[2021-11-21 06:54] LABS: HEMATOCRIT 33.5 % (35.4-49); HEMOGLOBIN 11.3 GM/dL (11.7-16.9); MCH 30.7 pg (25.7-33.7); MCHC 33.7 g/dl (32.0-35.9); MEAN CELL VOLUME 91.2 fl (80-96); MEAN PLT VOLUME 10.1 fl (7.5-11.1); PLATELET COUNT 300 10^3/uL (134-434); RBC 3.67 M/mm3 (4.00-5.60); RDW 15.9 % (11.9-15.9); WHITE BLOOD COUNT 7.2 K/mm3 (4.0-10.0)
[2021-11-21 07:29] LABS: CALCIUM 8.9 mg/dL (8.5-10.1)
[2021-11-21 07:30] LABS: ALBUMIN 2.4 g/dl (3.4-5.0); BLOOD UREA NITROGEN 27.9 mg/dL (7-18); MAGNESIUM 1.9 mg/dL (1.8-2.4)
[2021-11-21 07:32] LABS: PHOSPHOROUS 4.3 mg/dL (2.5-4.9)
[2021-11-21 07:33] LABS: CREATININE 2.2 mg/dL (0.55-1.3)
[2021-11-21 07:34] LABS: BILIRUBIN,TOTAL 0.6 mg/dL (0.2-1); TOT PROT 8.1 g/dl (6.4-8.2)
[2021-11-21] MEDS: TAMSULOSIN HCL 0.4 MG CAP PO SCH (07:38)
[2021-11-21] MEDS: ALBUTEROL SO4 2.5/IPRATROPIUM 0.5 INH SOL 3 ML VIAL.NEB. NEB SCH ×4 (08:42→20:08)
[2021-11-21] MEDS: amLODIPine BESYLATE 5 MG TABLET (FP) PO SCH ×2 (09:10→22:25)
[2021-11-21] MEDS: metroNIDAZOLE 0.75% TOPICAL GEL 45 GM TUBE TP SCH ×2 (09:10→22:37)
[2021-11-21] MEDS: DOXYCYCLINE HYCLATE 100 MG CAPSULE PO SCH ×2 (09:10→17:13)
[2021-11-21] MEDS: LIDOCAINE 5% TOPICAL PATCH TP SCH (09:13)
[2021-11-21] MEDS ORDERED: MAGNESIUM SULF 50% (8.12 MEQ/2 ML-1 GM VIAL) IVPB ONE (15:36)
[2021-11-21] MEDS: traMADol HCL 50 MG TABLET PO PRN (22:25)
[2021-11-21] MEDS: LIDOCAINE PATCH REMOVAL MC SCH (22:38)
[2021-11-22] MEDS: LACTATED RINGERS SOLUTION 1,000 ML/1,000 ML INFUS.BAG IV SCH ×2 (06:02→13:39)
[2021-11-22] MEDS: HEPARIN NA (PORCINE) 5,000 UNITS/ML 1ML VIAL SQ SCH ×3 (06:13→22:08)
[2021-11-22] MEDS: LEVOTHYROXINE NA 50 MCG TABLET (FP) PO SCH (06:13)
[2021-11-22] MEDS: hydrALAZINE HCL 25 MG TABLET (FP) PO SCH ×3 (06:13→22:08)
[2021-11-22] MEDS: BETAMETHASONE DIPR 0.05% CREAM 15 GM TUBE TP SCH ×3 (06:14→22:11)
[2021-11-22] MEDS: ACETAMINOPHEN 325 MG TABLET (FP) PO PRN ×2 (06:16→22:08)
[2021-11-22] MEDS: ALBUTEROL SO4 2.5/IPRATROPIUM 0.5 INH SOL 3 ML VIAL.NEB. NEB SCH ×4 (08:43→19:57)
[2021-11-22 09:17] LABS: ALBUMIN 2.6 g/dl (3.4-5.0)
[2021-11-22 09:18] LABS: BLOOD UREA NITROGEN 25.8 mg/dL (7-18)
[2021-11-22] MEDS: amLODIPine BESYLATE 5 MG TABLET (FP) PO SCH ×2 (09:19→22:08)
[2021-11-22] MEDS: TAMSULOSIN HCL 0.4 MG CAP PO SCH (09:19)
[2021-11-22] MEDS: LIDOCAINE 5% TOPICAL PATCH TP SCH (09:19)
[2021-11-22] MEDS: DOXYCYCLINE HYCLATE 100 MG CAPSULE PO SCH (09:19)
[2021-11-22 09:22] LABS: BILIRUBIN,TOTAL 0.3 mg/dL (0.2-1); TOT PROT 8.4 g/dl (6.4-8.2)
[2021-11-22] MEDS: metroNIDAZOLE 0.75% TOPICAL GEL 45 GM TUBE TP SCH ×2 (09:23→22:11)
[2021-11-22] MEDS: LIDOCAINE PATCH REMOVAL MC SCH (22:09)
[2021-11-23] MEDS: hydrALAZINE HCL 25 MG TABLET (FP) PO SCH ×3 (06:45→21:50)
[2021-11-23] MEDS: HEPARIN NA (PORCINE) 5,000 UNITS/ML 1ML VIAL SQ SCH ×3 (06:46→21:51)
[2021-11-23] MEDS: LEVOTHYROXINE NA 50 MCG TABLET (FP) PO SCH (06:50)
[2021-11-23] MEDS: BETAMETHASONE DIPR 0.05% CREAM 15 GM TUBE TP SCH ×3 (06:59→21:51)
[2021-11-23] MEDS: ALBUTEROL SO4 2.5/IPRATROPIUM 0.5 INH SOL 3 ML VIAL.NEB. NEB SCH ×4 (07:15→20:23)
[2021-11-23 08:14] LABS: HEMATOCRIT 34.1 % (35.4-49); HEMOGLOBIN 11.6 GM/dL (11.7-16.9); MCH 30.6 pg (25.7-33.7); MEAN CELL VOLUME 90.2 fl (80-96); MEAN PLT VOLUME 10.4 fl (7.5-11.1); PLATELET COUNT 328 10^3/uL (134-434); RBC 3.78 M/mm3 (4.00-5.60); RDW 15.4 % (11.9-15.9); WHITE BLOOD COUNT 8.3 K/mm3 (4.0-10.0)
[2021-11-23 08:33] LABS: CALCIUM 9.2 mg/dL (8.5-10.1)
[2021-11-23 08:34] LABS: ALBUMIN 2.5 g/dl (3.4-5.0); BLOOD UREA NITROGEN 27.8 mg/dL (7-18); MAGNESIUM 1.6 mg/dL (1.8-2.4)
[2021-11-23 08:37] LABS: CREATININE 1.9 mg/dL (0.55-1.3)
[2021-11-23 08:38] LABS: BILIRUBIN,TOTAL 0.4 mg/dL (0.2-1)
[2021-11-23 08:39] LABS: TOT PROT 8.4 g/dl (6.4-8.2)
[2021-11-23] MEDS: metroNIDAZOLE 0.75% TOPICAL GEL 45 GM TUBE TP SCH ×2 (09:22→21:52)
[2021-11-23] MEDS: LIDOCAINE 5% TOPICAL PATCH TP SCH (09:22)
[2021-11-23] MEDS: amLODIPine BESYLATE 5 MG TABLET (FP) PO SCH ×2 (09:22→21:50)
[2021-11-23] MEDS: TAMSULOSIN HCL 0.4 MG CAP PO SCH (09:22)
[2021-11-23] MEDS: LACTATED RINGERS SOLUTION 1,000 ML/1,000 ML INFUS.BAG IV SCH (12:00)
[2021-11-23] MEDS ORDERED: MAGNESIUM SULFATE IN WATER 2 GM/50 ML IVPB IVPB ONE (14:46)
[2021-11-23] MEDS: LIDOCAINE PATCH REMOVAL MC SCH (21:51)
[2021-11-24] MEDS: hydrALAZINE HCL 25 MG TABLET (FP) PO SCH ×3 (06:16→21:49)
[2021-11-24] MEDS: BETAMETHASONE DIPR 0.05% CREAM 15 GM TUBE TP SCH ×3 (06:16→21:50)
[2021-11-24] MEDS: HEPARIN NA (PORCINE) 5,000 UNITS/ML 1ML VIAL SQ SCH ×3 (06:17→21:49)
[2021-11-24] MEDS: LEVOTHYROXINE NA 50 MCG TABLET (FP) PO SCH (06:55)
[2021-11-24 07:13] LABS: HEMATOCRIT 34.8 % (35.4-49); HEMOGLOBIN 11.8 GM/dL (11.7-16.9); MCH 31.2 pg (25.7-33.7); MEAN CELL VOLUME 91.6 fl (80-96); MEAN PLT VOLUME 9.9 fl (7.5-11.1); PLATELET COUNT 338 10^3/uL (134-434); WHITE BLOOD COUNT 8.5 K/mm3 (4.0-10.0)
[2021-11-24] MEDS: ALBUTEROL SO4 2.5/IPRATROPIUM 0.5 INH SOL 3 ML VIAL.NEB. NEB SCH ×4 (07:25→20:36)
[2021-11-24 07:37] LABS: CALCIUM 9.1 mg/dL (8.5-10.1)
[2021-11-24 07:38] LABS: ALBUMIN 2.5 g/dl (3.4-5.0); MAGNESIUM 1.8 mg/dL (1.8-2.4)
[2021-11-24 07:41] LABS: CREATININE 1.7 mg/dL (0.55-1.3); PHOSPHOROUS 4.5 mg/dL (2.5-4.9)
[2021-11-24 07:42] LABS: BILIRUBIN,TOTAL 0.3 mg/dL (0.2-1); TOT PROT 8.5 g/dl (6.4-8.2)
[2021-11-24] MEDS: TAMSULOSIN HCL 0.4 MG CAP PO SCH (09:16)
[2021-11-24] MEDS: amLODIPine BESYLATE 5 MG TABLET (FP) PO SCH (09:16)
[2021-11-24] MEDS: LIDOCAINE 5% TOPICAL PATCH TP SCH (09:17)
[2021-11-24] MEDS: metroNIDAZOLE 0.75% TOPICAL GEL 45 GM TUBE TP SCH ×2 (09:17→21:51)
[2021-11-24] MEDS: LACTATED RINGERS SOLUTION 1,000 ML/1,000 ML INFUS.BAG IV SCH (13:58)
[2021-11-24] MEDS ORDERED: LACTATED RINGERS SOLUTION 1,000 ML/1,000 ML INFUS.BAG IV SCH (16:35)
[2021-11-24] MEDS ORDERED: MAGNESIUM 2GM/50ML STERILE WATER IVPB IVPB ONE (19:28)
[2021-11-24] MEDS: LIDOCAINE PATCH REMOVAL MC SCH (21:51)
[2021-11-24] MEDS: ACETAMINOPHEN 325 MG TABLET (FP) PO PRN (21:52)
[2021-11-25] MEDS: BETAMETHASONE DIPR 0.05% CREAM 15 GM TUBE TP SCH ×3 (06:19→21:43)
[2021-11-25] MEDS: HEPARIN NA (PORCINE) 5,000 UNITS/ML 1ML VIAL SQ SCH ×3 (06:19→21:43)
[2021-11-25] MEDS: LEVOTHYROXINE NA 50 MCG TABLET (FP) PO SCH (06:19)
[2021-11-25] MEDS: hydrALAZINE HCL 25 MG TABLET (FP) PO SCH ×3 (06:19→21:42)
[2021-11-25 07:43] LABS: ALBUMIN 2.3 g/dl (3.4-5.0); CALCIUM 8.5 mg/dL (8.5-10.1)
[2021-11-25 07:46] LABS: CREATININE 1.6 mg/dL (0.55-1.3)
[2021-11-25 07:47] LABS: PHOSPHOROUS 4.5 mg/dL (2.5-4.9)
[2021-11-25 07:48] LABS: BILIRUBIN,TOTAL 0.2 mg/dL (0.2-1)
[2021-11-25] MEDS: ALBUTEROL SO4 2.5/IPRATROPIUM 0.5 INH SOL 3 ML VIAL.NEB. NEB SCH ×4 (08:09→20:35)
[2021-11-25] MEDS: traMADol HCL 50 MG TABLET PO PRN (09:05)
[2021-11-25] MEDS: LIDOCAINE 5% TOPICAL PATCH TP SCH (09:06)
[2021-11-25] MEDS: TAMSULOSIN HCL 0.4 MG CAP PO SCH (09:06)
[2021-11-25] MEDS: metroNIDAZOLE 0.75% TOPICAL GEL 45 GM TUBE TP SCH ×2 (09:07→21:44)
[2021-11-25] MEDS ORDERED: LACTATED RINGERS SOLUTION 1,000 ML/1,000 ML INFUS.BAG IV SCH (12:30)
[2021-11-25] MEDS ORDERED: oxyCODONE HCL 5 MG TABLET PO ONE (21:21)
[2021-11-25] MEDS: LIDOCAINE PATCH REMOVAL MC SCH (21:44)
[2021-11-26] MEDS: BETAMETHASONE DIPR 0.05% CREAM 15 GM TUBE TP SCH ×3 (06:03→21:50)
[2021-11-26] MEDS: LEVOTHYROXINE NA 50 MCG TABLET (FP) PO SCH (06:11)
[2021-11-26] MEDS: hydrALAZINE HCL 25 MG TABLET (FP) PO SCH ×3 (06:11→21:52)
[2021-11-26] MEDS: HEPARIN NA (PORCINE) 5,000 UNITS/ML 1ML VIAL SQ SCH ×3 (06:11→21:51)
[2021-11-26] MEDS: ALBUTEROL SO4 2.5/IPRATROPIUM 0.5 INH SOL 3 ML VIAL.NEB. NEB SCH ×4 (08:17→20:45)
[2021-11-26] MEDS: TAMSULOSIN HCL 0.4 MG CAP PO SCH (09:49)
[2021-11-26] MEDS: LIDOCAINE 5% TOPICAL PATCH TP SCH (09:49)
[2021-11-26] MEDS: metroNIDAZOLE 0.75% TOPICAL GEL 45 GM TUBE TP SCH ×2 (09:51→21:52)
[2021-11-26] MEDS: LIDOCAINE PATCH REMOVAL MC SCH (21:52)
[2021-11-26] MEDS ORDERED: oxyCODONE HCL 5 MG TABLET PO ONE (22:13)
[2021-11-27] MEDS: ACETAMINOPHEN 325 MG TABLET (FP) PO PRN ×2 (06:13→21:52)
[2021-11-27] MEDS: BETAMETHASONE DIPR 0.05% CREAM 15 GM TUBE TP SCH ×3 (06:14→21:48)
[2021-11-27] MEDS: LEVOTHYROXINE NA 50 MCG TABLET (FP) PO SCH (06:14)
[2021-11-27] MEDS: hydrALAZINE HCL 25 MG TABLET (FP) PO SCH ×3 (06:14→21:48)
[2021-11-27] MEDS: HEPARIN NA (PORCINE) 5,000 UNITS/ML 1ML VIAL SQ SCH ×3 (06:15→21:49)
[2021-11-27 07:40] LABS: HEMATOCRIT 36.3 % (35.4-49); MCH 30.6 pg (25.7-33.7); MCHC 33.1 g/dl (32.0-35.9); MEAN CELL VOLUME 92.5 fl (80-96); PLATELET COUNT 367 10^3/uL (134-434); RBC 3.92 M/mm3 (4.00-5.60); RDW 15.9 % (11.9-15.9); WHITE BLOOD COUNT 8.1 K/mm3 (4.0-10.0)
[2021-11-27] MEDS: ALBUTEROL SO4 2.5/IPRATROPIUM 0.5 INH SOL 3 ML VIAL.NEB. NEB SCH ×4 (07:55→20:32)
[2021-11-27 07:59] LABS: ALBUMIN 2.7 g/dl (3.4-5.0); BLOOD UREA NITROGEN 25.6 mg/dL (7-18); CALCIUM 8.9 mg/dL (8.5-10.1); MAGNESIUM 1.6 mg/dL (1.8-2.4)
[2021-11-27 08:02] LABS: CREATININE 1.5 mg/dL (0.55-1.3); PHOSPHOROUS 4.6 mg/dL (2.5-4.9)
[2021-11-27 08:03] LABS: BILIRUBIN,TOTAL 0.5 mg/dL (0.2-1); TOT PROT 9.2 g/dl (6.4-8.2)
[2021-11-27] MEDS: TAMSULOSIN HCL 0.4 MG CAP PO SCH (09:58)
[2021-11-27] MEDS: metroNIDAZOLE 0.75% TOPICAL GEL 45 GM TUBE TP SCH ×2 (09:58→21:49)
[2021-11-27] MEDS: LIDOCAINE 5% TOPICAL PATCH TP SCH (09:58)
[2021-11-27] MEDS ORDERED: MAGNESIUM 2GM/50ML STERILE WATER IVPB IVPB ONE (14:47)
[2021-11-27 16:08] LABS: FREE KAPPA,SERUM 2792.9 mg/L (3.3-19.4)
[2021-11-27] MEDS ORDERED: MAGNESIUM SULF 50% (8.12 MEQ/2 ML-1 GM VIAL) ONE (17:51)
[2021-11-27] MEDS: LIDOCAINE PATCH REMOVAL MC SCH (21:50)
[2021-11-28] MEDS: hydrALAZINE HCL 25 MG TABLET (FP) PO SCH ×3 (06:16→22:17)
[2021-11-28] MEDS: LEVOTHYROXINE NA 50 MCG TABLET (FP) PO SCH (06:16)
[2021-11-28] MEDS: HEPARIN NA (PORCINE) 5,000 UNITS/ML 1ML VIAL SQ SCH ×4 (06:16→22:17)
[2021-11-28] MEDS: BETAMETHASONE DIPR 0.05% CREAM 15 GM TUBE TP SCH ×3 (06:17→22:18)
[2021-11-28] MEDS: TAMSULOSIN HCL 0.4 MG CAP PO SCH (08:30)
[2021-11-28] MEDS: ACETAMINOPHEN 325 MG TABLET (FP) PO PRN ×2 (08:31→18:39)
[2021-11-28 08:34] LABS: BASO % 1.3 % (0-2.0); EOS % 2.6 % (0-4.5); HEMATOCRIT 37.1 % (35.4-49); HEMOGLOBIN 12.4 GM/dL (11.7-16.9); LYMPH % 24.8 % (8-40); MCH 30.8 pg (25.7-33.7); MCHC 33.2 g/dl (32.0-35.9); MEAN CELL VOLUME 92.7 fl (80-96); MEAN PLT VOLUME 10.5 fl (7.5-11.1); MONO % 18.7 % (3.8-10.2); NEUT % 52.6 % (42.8-82.8); PLATELET COUNT 394 10^3/uL (134-434); RBC 4.01 M/mm3 (4.00-5.60); RDW 15.8 % (11.9-15.9); WHITE BLOOD COUNT 6.7 K/mm3 (4.0-10.0)
[2021-11-28 08:40] LABS: CHLORIDE 104 mmol/L (98-107); SODIUM 132 mmol/L (136-145)
[2021-11-28 08:44] LABS: GLUCOSE,RANDOM 73 mg/dL (74-106)
[2021-11-28 08:46] LABS: CALCIUM 8.8 mg/dL (8.5-10.1)
[2021-11-28 08:47] LABS: ALBUMIN 2.4 g/dl (3.4-5.0); BLOOD UREA NITROGEN 33.8 mg/dL (7-18); CO2 26 mmol/L (21-32); CREATININE 1.5 mg/dL (0.55-1.3); PHOSPHOROUS 5.1 mg/dL (2.5-4.9)
[2021-11-28 08:48] LABS: BILIRUBIN,TOTAL 0.3 mg/dL (0.2-1); MAGNESIUM 2.2 mg/dL (1.8-2.4); SGOT/AST 77 U/L (15-37); TOT PROT 9.7 g/dl (6.4-8.2)
[2021-11-28] MEDS: ALBUTEROL SO4 2.5/IPRATROPIUM 0.5 INH SOL 3 ML VIAL.NEB. NEB SCH ×4 (08:48→20:10)
[2021-11-28 08:49] LABS: ALK PHOS 141 U/L (45-117)
[2021-11-28 08:51] LABS: ANION GAP 2 MMOL/L (8-16); SGPT/ALT 65 U/L (13-61)
[2021-11-28] MEDS ORDERED: ACETAMINOPHEN 1000 MG/100 ML BAG IVPB ONE (09:01)
[2021-11-28] MEDS: LIDOCAINE 5% TOPICAL PATCH TP SCH (09:38)
[2021-11-28] MEDS: metroNIDAZOLE 0.75% TOPICAL GEL 45 GM TUBE TP SCH ×2 (10:14→22:19)
[2021-11-28 13:01] LABS: CALCIUM 9.1 mg/dL (8.5-10.1)
[2021-11-28 13:02] LABS: ALBUMIN 2.5 g/dl (3.4-5.0); BLOOD UREA NITROGEN 29.9 mg/dL (7-18)
[2021-11-28 13:05] LABS: CREATININE 1.4 mg/dL (0.55-1.3)
[2021-11-28 13:07] LABS: BILIRUBIN,TOTAL 0.2 mg/dL (0.2-1); TOT PROT 8.7 g/dl (6.4-8.2)
[2021-11-28] MEDS: oxyCODONE HCL 5 MG TABLET PO PRN (18:39)
[2021-11-28] MEDS: LIDOCAINE PATCH REMOVAL MC SCH (22:18)
[2021-11-29] MEDS: hydrALAZINE HCL 25 MG TABLET (FP) PO SCH ×3 (05:17→21:49)
[2021-11-29] MEDS: HEPARIN NA (PORCINE) 5,000 UNITS/ML 1ML VIAL SQ SCH (05:17)
[2021-11-29] MEDS: BETAMETHASONE DIPR 0.05% CREAM 15 GM TUBE TP SCH ×3 (05:18→21:49)
[2021-11-29] MEDS: LEVOTHYROXINE NA 50 MCG TABLET (FP) PO SCH (06:38)
[2021-11-29] MEDS: ALBUTEROL SO4 2.5/IPRATROPIUM 0.5 INH SOL 3 ML VIAL.NEB. NEB SCH ×4 (07:53→20:53)
[2021-11-29 10:25] LABS: INR 1.02 (0.83-1.09); PROTHROMBIN TIME (PATIENT) 11.7 SEC (9.7-13.0)
[2021-11-29 10:26] LABS: BASO % 1.7 % (0-2.0); EOS % 2.7 % (0-4.5); HEMATOCRIT 33.9 % (35.4-49); HEMOGLOBIN 11.6 GM/dL (11.7-16.9); LYMPH % 22.1 % (8-40); MCH 31.2 pg (25.7-33.7); MCHC 34.1 g/dl (32.0-35.9); MEAN CELL VOLUME 91.3 fl (80-96); MEAN PLT VOLUME 9.8 fl (7.5-11.1); MONO % 17.5 % (3.8-10.2); PLATELET COUNT 353 10^3/uL (134-434); RBC 3.71 M/mm3 (4.00-5.60); RDW 15.6 % (11.9-15.9); WHITE BLOOD COUNT 6.4 K/mm3 (4.0-10.0)
[2021-11-29 10:42] LABS: BLOOD UREA NITROGEN 28.9 mg/dL (7-18); CALCIUM 9.2 mg/dL (8.5-10.1)
[2021-11-29 10:46] LABS: CREATININE 1.4 mg/dL (0.55-1.3)
[2021-11-29] MEDS: TAMSULOSIN HCL 0.4 MG CAP PO SCH (11:22)
[2021-11-29] MEDS: LIDOCAINE 5% TOPICAL PATCH TP SCH (11:22)
[2021-11-29] MEDS: metroNIDAZOLE 0.75% TOPICAL GEL 45 GM TUBE TP SCH ×2 (11:29→21:49)
[2021-11-29] MEDS ORDERED: MIDAZOLAM HCL 2 MG/2 ML SINGLE DOSE VIAL ONE (12:04)
[2021-11-29] MEDS: oxyCODONE HCL 5 MG TABLET PO PRN ×2 (13:49→21:50)
[2021-11-29] MEDS: ACETAMINOPHEN 325 MG TABLET (FP) PO PRN (21:49)
[2021-11-29] MEDS: LIDOCAINE PATCH REMOVAL MC SCH (21:49)
[2021-11-30] MEDS: hydrALAZINE HCL 25 MG TABLET (FP) PO SCH ×3 (06:08→21:28)
[2021-11-30] MEDS: LEVOTHYROXINE NA 50 MCG TABLET (FP) PO SCH (06:08)
[2021-11-30] MEDS: BETAMETHASONE DIPR 0.05% CREAM 15 GM TUBE TP SCH ×3 (06:08→21:31)
[2021-11-30] MEDS: ALBUTEROL SO4 2.5/IPRATROPIUM 0.5 INH SOL 3 ML VIAL.NEB. NEB SCH ×4 (08:30→21:08)
[2021-11-30 08:54] LABS: EOS % 2.2 % (0-4.5); HEMATOCRIT 37.8 % (35.4-49); HEMOGLOBIN 12.4 GM/dL (11.7-16.9); LYMPH % 26.7 % (8-40); MCH 30.4 pg (25.7-33.7); MCHC 32.7 g/dl (32.0-35.9); MEAN CELL VOLUME 92.9 fl (80-96); MEAN PLT VOLUME 9.9 fl (7.5-11.1); MONO % 15.2 % (3.8-10.2); NEUT % 54.9 % (42.8-82.8); PLATELET COUNT 356 10^3/uL (134-434); RBC 4.07 M/mm3 (4.00-5.60); RDW 15.8 % (11.9-15.9); WHITE BLOOD COUNT 8.6 K/mm3 (4.0-10.0)
[2021-11-30] MEDS: TAMSULOSIN HCL 0.4 MG CAP PO SCH (08:55)
[2021-11-30] MEDS: LIDOCAINE 5% TOPICAL PATCH TP SCH (09:00)
[2021-11-30 09:02] LABS: INR 0.97 (0.83-1.09); PROTHROMBIN TIME (PATIENT) 11.2 SEC (9.7-13.0)
[2021-11-30] MEDS: metroNIDAZOLE 0.75% TOPICAL GEL 45 GM TUBE TP SCH ×2 (09:02→21:31)
[2021-11-30 09:27] LABS: CHLORIDE 101 mmol/L (98-107); SODIUM 129 mmol/L (136-145)
[2021-11-30 09:29] LABS: CALCIUM 9.5 mg/dL (8.5-10.1)
[2021-11-30 09:30] LABS: ALBUMIN 2.8 g/dl (3.4-5.0); BLOOD UREA NITROGEN 40.4 mg/dL (7-18); CO2 25 mmol/L (21-32); GLUCOSE,RANDOM 71 mg/dL (74-106)
[2021-11-30 09:33] LABS: CREATININE 1.8 mg/dL (0.55-1.3); SGOT/AST 84 U/L (15-37)
[2021-11-30 09:34] LABS: BILIRUBIN,TOTAL 0.5 mg/dL (0.2-1)
[2021-11-30 09:36] LABS: ALK PHOS 133 U/L (45-117)
[2021-11-30 10:01] LABS: ANION GAP 3 MMOL/L (8-16); SGPT/ALT 58 U/L (13-61); TOT PROT 10.7 g/dl (6.4-8.2)
[2021-11-30] MEDS: oxyCODONE HCL 5 MG TABLET PO PRN ×2 (13:39→21:28)
[2021-11-30] MEDS ORDERED: SODIUM CHLORIDE 1,000 ML IV SCH (16:15)
[2021-11-30] MEDS: ACETAMINOPHEN 325 MG TABLET (FP) PO PRN (17:28)
[2021-11-30] MEDS: LIDOCAINE PATCH REMOVAL MC SCH (21:31)
[2021-12-01] MEDS: LEVOTHYROXINE NA 50 MCG TABLET (FP) PO SCH (06:04)
[2021-12-01] MEDS: BETAMETHASONE DIPR 0.05% CREAM 15 GM TUBE TP SCH ×3 (06:04→21:21)
[2021-12-01] MEDS: hydrALAZINE HCL 25 MG TABLET (FP) PO SCH ×3 (06:04→21:21)
[2021-12-01] MEDS: ALBUTEROL SO4 2.5/IPRATROPIUM 0.5 INH SOL 3 ML VIAL.NEB. NEB SCH ×4 (07:40→20:00)
[2021-12-01 09:26] LABS: BASO % 1.1 % (0-2.0); EOS % 2.6 % (0-4.5); HEMATOCRIT 33.3 % (35.4-49); LYMPH % 21.6 % (8-40); MCH 30.5 pg (25.7-33.7); MCHC 33.1 g/dl (32.0-35.9); MEAN CELL VOLUME 92.2 fl (80-96); MEAN PLT VOLUME 10.2 fl (7.5-11.1); MONO % 18.3 % (3.8-10.2); NEUT % 56.4 % (42.8-82.8); PLATELET COUNT 367 10^3/uL (134-434); RBC 3.62 M/mm3 (4.00-5.60); RDW 15.4 % (11.9-15.9); WHITE BLOOD COUNT 6.5 K/mm3 (4.0-10.0)
[2021-12-01 10:03] LABS: CALCIUM 9.1 mg/dL (8.5-10.1)
[2021-12-01 10:04] LABS: ALBUMIN 2.5 g/dl (3.4-5.0); BLOOD UREA NITROGEN 43.3 mg/dL (7-18); MAGNESIUM 1.8 mg/dL (1.8-2.4)
[2021-12-01 10:05] LABS: PHOSPHOROUS 4.2 mg/dL (2.5-4.9)
[2021-12-01 10:06] LABS: BILIRUBIN,TOTAL 0.2 mg/dL (0.2-1); CREATININE 1.5 mg/dL (0.55-1.3)
[2021-12-01] MEDS: TAMSULOSIN HCL 0.4 MG CAP PO SCH (10:14)
[2021-12-01] MEDS: LIDOCAINE 5% TOPICAL PATCH TP SCH (10:15)
[2021-12-01] MEDS: metroNIDAZOLE 0.75% TOPICAL GEL 45 GM TUBE TP SCH ×2 (10:15→21:21)
[2021-12-01 10:19] LABS: TOT PROT 8.7 g/dl (6.4-8.2)
[2021-12-01] MEDS: ACETAMINOPHEN 325 MG TABLET (FP) PO PRN (13:24)
[2021-12-01] MEDS: oxyCODONE HCL 5 MG TABLET PO PRN ×2 (13:25→20:10)
[2021-12-01] MEDS: LIDOCAINE PATCH REMOVAL MC SCH (21:21)
[2021-12-02] MEDS: hydrALAZINE HCL 25 MG TABLET (FP) PO SCH ×3 (05:34→21:23)
[2021-12-02] MEDS: BETAMETHASONE DIPR 0.05% CREAM 15 GM TUBE TP SCH ×3 (05:34→21:23)
[2021-12-02] MEDS: LEVOTHYROXINE NA 50 MCG TABLET (FP) PO SCH (06:00)
[2021-12-02 08:05] LABS: HEMATOCRIT 35.1 % (35.4-49); HEMOGLOBIN 11.5 GM/dL (11.7-16.9); MCH 30.3 pg (25.7-33.7); MCHC 32.9 g/dl (32.0-35.9); MEAN CELL VOLUME 92.2 fl (80-96); PLATELET COUNT 348 10^3/uL (134-434); RDW 15.6 % (11.9-15.9); WHITE BLOOD COUNT 6.1 K/mm3 (4.0-10.0)
[2021-12-02 08:21] LABS: ALBUMIN 2.7 g/dl (3.4-5.0); BLOOD UREA NITROGEN 42.2 mg/dL (7-18); CALCIUM 9.3 mg/dL (8.5-10.1)
[2021-12-02 08:24] LABS: CREATININE 1.5 mg/dL (0.55-1.3)
[2021-12-02 08:25] LABS: BILIRUBIN,TOTAL 0.4 mg/dL (0.2-1); TOT PROT 9.2 g/dl (6.4-8.2)
[2021-12-02] MEDS: ALBUTEROL SO4 2.5/IPRATROPIUM 0.5 INH SOL 3 ML VIAL.NEB. NEB SCH ×4 (09:10→19:47)
[2021-12-02] MEDS: TAMSULOSIN HCL 0.4 MG CAP PO SCH (09:48)
[2021-12-02] MEDS: LIDOCAINE 5% TOPICAL PATCH TP SCH (09:48)
[2021-12-02] MEDS: metroNIDAZOLE 0.75% TOPICAL GEL 45 GM TUBE TP SCH ×2 (09:49→21:23)
[2021-12-02] MEDS: oxyCODONE HCL 5 MG TABLET PO PRN ×2 (11:53→21:23)
[2021-12-02] MEDS: ACETAMINOPHEN 325 MG TABLET (FP) PO PRN (11:54)
[2021-12-02] MEDS: LIDOCAINE PATCH REMOVAL MC SCH (21:23)
[2021-12-03] MEDS: hydrALAZINE HCL 25 MG TABLET (FP) PO SCH ×3 (05:00→21:24)
[2021-12-03] MEDS: BETAMETHASONE DIPR 0.05% CREAM 15 GM TUBE TP SCH ×3 (05:02→21:26)
[2021-12-03] MEDS: LEVOTHYROXINE NA 50 MCG TABLET (FP) PO SCH ×2 (06:01→08:57)
[2021-12-03] MEDS: oxyCODONE HCL 5 MG TABLET PO PRN ×2 (08:51→18:38)
[2021-12-03] MEDS: TAMSULOSIN HCL 0.4 MG CAP PO SCH (08:57)
[2021-12-03] MEDS: ALBUTEROL SO4 2.5/IPRATROPIUM 0.5 INH SOL 3 ML VIAL.NEB. NEB SCH ×4 (08:59→20:13)
[2021-12-03 09:07] LABS: EOS % 1.8 % (0-4.5); HEMATOCRIT 34.8 % (35.4-49); HEMOGLOBIN 11.5 GM/dL (11.7-16.9); LYMPH % 21.7 % (8-40); MCH 30.3 pg (25.7-33.7); MCHC 33.2 g/dl (32.0-35.9); MEAN CELL VOLUME 91.2 fl (80-96); MEAN PLT VOLUME 10.1 fl (7.5-11.1); NEUT % 59.5 % (42.8-82.8); PLATELET COUNT 381 10^3/uL (134-434); RBC 3.81 M/mm3 (4.00-5.60); RDW 15.5 % (11.9-15.9); WHITE BLOOD COUNT 6.5 K/mm3 (4.0-10.0)
[2021-12-03 09:24] LABS: BLOOD UREA NITROGEN 41.5 mg/dL (7-18); CALCIUM 9.7 mg/dL (8.5-10.1)
[2021-12-03 09:28] LABS: CREATININE 1.5 mg/dL (0.55-1.3)
[2021-12-03] MEDS: LIDOCAINE 5% TOPICAL PATCH TP SCH (12:53)
[2021-12-03] MEDS: metroNIDAZOLE 0.75% TOPICAL GEL 45 GM TUBE TP SCH ×2 (12:56→21:26)
[2021-12-03] MEDS: ACETAMINOPHEN 325 MG TABLET (FP) PO PRN (14:08)
[2021-12-03] MEDS: LIDOCAINE PATCH REMOVAL MC SCH (21:26)
[2021-12-04] MEDS: BETAMETHASONE DIPR 0.05% CREAM 15 GM TUBE TP SCH ×3 (06:23→21:27)
[2021-12-04] MEDS: hydrALAZINE HCL 25 MG TABLET (FP) PO SCH (06:23)
[2021-12-04] MEDS: LEVOTHYROXINE NA 50 MCG TABLET (FP) PO SCH (06:23)
[2021-12-04] MEDS: oxyCODONE HCL 5 MG TABLET PO PRN ×2 (07:46→18:20)
[2021-12-04] MEDS: ALBUTEROL SO4 2.5/IPRATROPIUM 0.5 INH SOL 3 ML VIAL.NEB. NEB SCH ×4 (08:24→20:05)
[2021-12-04 08:40] LABS: BASO % 0.8 % (0-2.0); EOS % 1.5 % (0-4.5); HEMOGLOBIN 12.2 GM/dL (11.7-16.9); LYMPH % 26.8 % (8-40); MCH 31.1 pg (25.7-33.7); MCHC 33.8 g/dl (32.0-35.9); MEAN PLT VOLUME 9.7 fl (7.5-11.1); MONO % 14.7 % (3.8-10.2); NEUT % 56.2 % (42.8-82.8); PLATELET COUNT 371 10^3/uL (134-434); RBC 3.91 M/mm3 (4.00-5.60); RDW 15.3 % (11.9-15.9); WHITE BLOOD COUNT 6.3 K/mm3 (4.0-10.0)
[2021-12-04 08:44] LABS: CALCIUM 9.9 mg/dL (8.5-10.1)
[2021-12-04 08:45] LABS: BLOOD UREA NITROGEN 40.2 mg/dL (7-18)
[2021-12-04 08:48] LABS: CREATININE 1.5 mg/dL (0.55-1.3)
[2021-12-04] MEDS: LIDOCAINE 5% TOPICAL PATCH TP SCH (09:01)
[2021-12-04] MEDS: TAMSULOSIN HCL 0.4 MG CAP PO SCH (09:01)
[2021-12-04] MEDS: metroNIDAZOLE 0.75% TOPICAL GEL 45 GM TUBE TP SCH ×2 (11:09→21:28)
[2021-12-04] MEDS: LIDOCAINE PATCH REMOVAL MC SCH (21:27)
[2021-12-05] MEDS: ACETAMINOPHEN 325 MG TABLET (FP) PO PRN ×3 (02:21→17:50)
[2021-12-05] MEDS: oxyCODONE HCL 5 MG TABLET PO PRN ×3 (06:05→22:53)
[2021-12-05] MEDS: hydrALAZINE HCL 25 MG TABLET (FP) PO SCH (06:05)
[2021-12-05] MEDS: LEVOTHYROXINE NA 50 MCG TABLET (FP) PO SCH (06:05)
[2021-12-05] MEDS: BETAMETHASONE DIPR 0.05% CREAM 15 GM TUBE TP SCH ×3 (06:07→21:39)
[2021-12-05] MEDS: ALBUTEROL SO4 2.5/IPRATROPIUM 0.5 INH SOL 3 ML VIAL.NEB. NEB SCH ×4 (07:35→20:23)
[2021-12-05] MEDS: TAMSULOSIN HCL 0.4 MG CAP PO SCH (08:57)
[2021-12-05] MEDS: ENOXAPARIN NA (PORCINE) 40 MG/0.4 ML DISP.SYRIN SQ SCH (10:06)
[2021-12-05] MEDS: LIDOCAINE 5% TOPICAL PATCH TP SCH (10:06)
[2021-12-05] MEDS: metroNIDAZOLE 0.75% TOPICAL GEL 45 GM TUBE TP SCH ×2 (10:09→21:39)
[2021-12-05 12:25] LABS: BASO % 0.8 % (0-2.0); EOS % 1.4 % (0-4.5); HEMATOCRIT 36.4 % (35.4-49); HEMOGLOBIN 12.3 GM/dL (11.7-16.9); LYMPH % 22.8 % (8-40); MCH 31.3 pg (25.7-33.7); MCHC 33.7 g/dl (32.0-35.9); MEAN CELL VOLUME 92.8 fl (80-96); MEAN PLT VOLUME 10.1 fl (7.5-11.1); MONO % 14.3 % (3.8-10.2); NEUT % 60.7 % (42.8-82.8); PLATELET COUNT 372 10^3/uL (134-434); RBC 3.93 M/mm3 (4.00-5.60); RDW 15.4 % (11.9-15.9); WHITE BLOOD COUNT 6.3 K/mm3 (4.0-10.0)
[2021-12-05 14:04] LABS: BLOOD UREA NITROGEN 33.5 mg/dL (7-18); CALCIUM 9.7 mg/dL (8.5-10.1)
[2021-12-05 14:07] LABS: CREATININE 1.4 mg/dL (0.55-1.3)
[2021-12-05] MEDS: LIDOCAINE PATCH REMOVAL MC SCH (21:38)
[2021-12-06] MEDS: ALBUTEROL SO4 2.5/IPRATROPIUM 0.5 INH SOL 3 ML VIAL.NEB. NEB SCH ×4 (07:25→20:41)
[2021-12-06] MEDS: LEVOTHYROXINE NA 50 MCG TABLET (FP) PO SCH (07:30)
[2021-12-06] MEDS: BETAMETHASONE DIPR 0.05% CREAM 15 GM TUBE TP SCH ×3 (07:30→21:04)
[2021-12-06] MEDS: oxyCODONE HCL 5 MG TABLET PO PRN ×3 (08:12→22:29)
[2021-12-06] MEDS: TAMSULOSIN HCL 0.4 MG CAP PO SCH (08:13)
[2021-12-06 10:23] LABS: BASO % 0.8 % (0-2.0); EOS % 1.3 % (0-4.5); HEMATOCRIT 37.2 % (35.4-49); HEMOGLOBIN 12.2 GM/dL (11.7-16.9); LYMPH % 20.3 % (8-40); MCH 30.3 pg (25.7-33.7); MCHC 32.9 g/dl (32.0-35.9); MEAN CELL VOLUME 92.1 fl (80-96); MONO % 14.5 % (3.8-10.2); NEUT % 63.1 % (42.8-82.8); PLATELET COUNT 387 10^3/uL (134-434); RBC 4.04 M/mm3 (4.00-5.60); RDW 15.3 % (11.9-15.9)
[2021-12-06] MEDS: LIDOCAINE 5% TOPICAL PATCH TP SCH (10:39)
[2021-12-06] MEDS: metroNIDAZOLE 0.75% TOPICAL GEL 45 GM TUBE TP SCH ×2 (10:39→21:05)
[2021-12-06 11:18] LABS: CALCIUM 10.2 mg/dL (8.5-10.1)
[2021-12-06 11:19] LABS: BLOOD UREA NITROGEN 32.7 mg/dL (7-18)
[2021-12-06 11:22] LABS: CREATININE 1.4 mg/dL (0.55-1.3)
[2021-12-06] MEDS: ENOXAPARIN NA (PORCINE) 40 MG/0.4 ML DISP.SYRIN SQ SCH (11:39)
[2021-12-06] MEDS: LIDOCAINE PATCH REMOVAL MC SCH (21:05)
[2021-12-07] MEDS: LEVOTHYROXINE NA 50 MCG TABLET (FP) PO SCH (06:27)
[2021-12-07] MEDS: BETAMETHASONE DIPR 0.05% CREAM 15 GM TUBE TP SCH ×3 (06:27→21:44)
[2021-12-07] MEDS: ALBUTEROL SO4 2.5/IPRATROPIUM 0.5 INH SOL 3 ML VIAL.NEB. NEB SCH ×3 (07:15→15:00)
[2021-12-07 09:22] LABS: BASO % 0.8 % (0-2.0); EOS % 2.2 % (0-4.5); HEMATOCRIT 33.3 % (35.4-49); HEMOGLOBIN 11.3 GM/dL (11.7-16.9); LYMPH % 25.5 % (8-40); MCHC 33.8 g/dl (32.0-35.9); MEAN CELL VOLUME 91.8 fl (80-96); MONO % 17.6 % (3.8-10.2); NEUT % 53.9 % (42.8-82.8); PLATELET COUNT 334 10^3/uL (134-434); RBC 3.63 M/mm3 (4.00-5.60); RDW 14.9 % (11.9-15.9); WHITE BLOOD COUNT 7.3 K/mm3 (4.0-10.0)
[2021-12-07] MEDS: TAMSULOSIN HCL 0.4 MG CAP PO SCH (09:28)
[2021-12-07] MEDS: LIDOCAINE 5% TOPICAL PATCH TP SCH (09:29)
[2021-12-07] MEDS: metroNIDAZOLE 0.75% TOPICAL GEL 45 GM TUBE TP SCH ×2 (09:29→21:44)
[2021-12-07] MEDS: oxyCODONE HCL 5 MG TABLET PO PRN ×3 (09:29→21:42)
[2021-12-07 10:20] LABS: BLOOD UREA NITROGEN 31.5 mg/dL (7-18); CALCIUM 9.8 mg/dL (8.5-10.1)
[2021-12-07 10:24] LABS: CREATININE 1.4 mg/dL (0.55-1.3)
[2021-12-07] MEDS: ENOXAPARIN NA (PORCINE) 40 MG/0.4 ML DISP.SYRIN SQ SCH (12:24)
[2021-12-07] MEDS ORDERED: SENNOSIDES/DOCUSATE COMBO (SENNA PLUS) TABLET (UD) PO PRN (18:52)
[2021-12-07] MEDS ORDERED: POLYETHYLENE GLYCOL (HEALTHYLAX) 3350 17 GM PACKET PO ONE (19:00)
[2021-12-07] MEDS: LIDOCAINE PATCH REMOVAL MC SCH (21:45)
[2021-12-08] MEDS: BETAMETHASONE DIPR 0.05% CREAM 15 GM TUBE TP SCH ×3 (06:01→21:35)
[2021-12-08] MEDS: LEVOTHYROXINE NA 50 MCG TABLET (FP) PO SCH (06:01)
[2021-12-08] MEDS: oxyCODONE HCL 5 MG TABLET PO PRN ×3 (08:33→20:53)
[2021-12-08] MEDS: TAMSULOSIN HCL 0.4 MG CAP PO SCH (08:33)
[2021-12-08] MEDS: ENOXAPARIN NA (PORCINE) 40 MG/0.4 ML DISP.SYRIN SQ SCH (10:21)
[2021-12-08] MEDS: LIDOCAINE 5% TOPICAL PATCH TP SCH (10:21)
[2021-12-08] MEDS: metroNIDAZOLE 0.75% TOPICAL GEL 45 GM TUBE TP SCH ×2 (10:23→21:35)
[2021-12-08] MEDS: LIDOCAINE PATCH REMOVAL MC SCH (23:06)
[2021-12-09] MEDS: BETAMETHASONE DIPR 0.05% CREAM 15 GM TUBE TP SCH ×3 (05:51→21:21)
[2021-12-09] MEDS: LEVOTHYROXINE NA 50 MCG TABLET (FP) PO SCH (06:46)
[2021-12-09] MEDS: ACETAMINOPHEN 325 MG TABLET (FP) PO PRN (08:47)
[2021-12-09] MEDS: metroNIDAZOLE 0.75% TOPICAL GEL 45 GM TUBE TP SCH ×2 (09:11→23:16)
[2021-12-09] MEDS: LIDOCAINE 5% TOPICAL PATCH TP SCH (09:11)
[2021-12-09] MEDS: ENOXAPARIN NA (PORCINE) 40 MG/0.4 ML DISP.SYRIN SQ SCH (09:11)
[2021-12-09] MEDS: TAMSULOSIN HCL 0.4 MG CAP PO SCH (09:11)
[2021-12-09] MEDS: oxyCODONE HCL 5 MG TABLET PO PRN (13:32)
[2021-12-09] MEDS: LIDOCAINE PATCH REMOVAL MC SCH (21:22)
[2021-12-10] MEDS: BETAMETHASONE DIPR 0.05% CREAM 15 GM TUBE TP SCH ×3 (05:55→21:29)
[2021-12-10] MEDS: LEVOTHYROXINE NA 50 MCG TABLET (FP) PO SCH (06:51)
[2021-12-10] MEDS: TAMSULOSIN HCL 0.4 MG CAP PO SCH (08:15)
[2021-12-10] MEDS: oxyCODONE HCL 5 MG TABLET PO PRN ×3 (08:15→21:26)
[2021-12-10] MEDS: LIDOCAINE 5% TOPICAL PATCH TP SCH (09:23)
[2021-12-10] MEDS: ENOXAPARIN NA (PORCINE) 40 MG/0.4 ML DISP.SYRIN SQ SCH ×2 (09:23→09:26)
[2021-12-10] MEDS: metroNIDAZOLE 0.75% TOPICAL GEL 45 GM TUBE TP SCH ×2 (09:24→21:29)
[2021-12-10] MEDS: LIDOCAINE PATCH REMOVAL MC SCH (21:29)
[2021-12-11] MEDS: LEVOTHYROXINE NA 50 MCG TABLET (FP) PO SCH (06:49)
[2021-12-11] MEDS: BETAMETHASONE DIPR 0.05% CREAM 15 GM TUBE TP SCH ×3 (06:51→21:51)
[2021-12-11] MEDS: TAMSULOSIN HCL 0.4 MG CAP PO SCH (08:52)
[2021-12-11] MEDS: ENOXAPARIN NA (PORCINE) 40 MG/0.4 ML DISP.SYRIN SQ SCH (09:08)
[2021-12-11] MEDS: oxyCODONE HCL 5 MG TABLET PO PRN ×2 (09:08→21:49)
[2021-12-11] MEDS: LIDOCAINE 5% TOPICAL PATCH TP SCH (09:10)
[2021-12-11] MEDS: metroNIDAZOLE 0.75% TOPICAL GEL 45 GM TUBE TP SCH ×2 (09:17→21:52)
[2021-12-11] MEDS: LIDOCAINE PATCH REMOVAL MC SCH (21:52)
[2021-12-12] MEDS: LEVOTHYROXINE NA 50 MCG TABLET (FP) PO SCH (06:48)
[2021-12-12] MEDS: BETAMETHASONE DIPR 0.05% CREAM 15 GM TUBE TP SCH ×2 (06:50→15:05)
[2021-12-12 08:54] VITALS: BP 121/70; PULSE 74; RESP 18
[2021-12-12] MEDS: oxyCODONE HCL 5 MG TABLET PO PRN (08:56)
[2021-12-12] MEDS: TAMSULOSIN HCL 0.4 MG CAP PO SCH (08:56)
[2021-12-12] MEDS: LIDOCAINE 5% TOPICAL PATCH TP SCH (10:42)
[2021-12-12] MEDS: metroNIDAZOLE 0.75% TOPICAL GEL 45 GM TUBE TP SCH (11:11)
[2021-12-12] MEDS: ENOXAPARIN NA (PORCINE) 40 MG/0.4 ML DISP.SYRIN SQ SCH (11:11)
[2021-12-12] MEDS ORDERED: DEXAMETHASONE 4 MG TABLET (FP) PO ONE (13:15)
[2021-12-12 13:16] VITALS: TEMP 98.6
[2021-12-12] MEDS ORDERED: oxyCODONE HCL 5 MG TABLET PO ONE (14:50)
== END 2021-12-12 16:32 | DRG 683 ==
LOC: JER 22:28 → JERBED 11-17 00:23 → J4S 11-17 19:11 → J4W 11-20 21:43 → J8W 11-28 21:03
PROVIDERS: ADMIT Internal Medicine; ATTEND Internal Medicine
PROC: 07DR3ZX Extraction of Iliac Bone Marrow, Percutaneous Approach, Diagnostic (ICD-10-PCS; principal; 2021-12-03)
DX: N17.9 Acute kidney failure, unspecified (principal); C90.00 Multiple myeloma not having achieved remission; E03.9 Hypothyroidism, unspecified; R63.4 Abnormal weight loss; Z68.23 Body mass index [BMI] 23.0-23.9, adult; E86.0 Dehydration; R55 Syncope and collapse; J44.9 Chronic obstructive pulmonary disease, unspecified; G62.9 Polyneuropathy, unspecified; M54.50 Low back pain, unspecified; D32.0 Benign neoplasm of cerebral meninges; I12.9 Hypertensive chronic kidney disease with stage 1 through stage 4 chronic kidney disease, or unspecified chronic kidney disease; R91.1 Solitary pulmonary nodule; N18.30 Chronic kidney disease, stage 3 unspecified; F10.20 Alcohol dependence, uncomplicated; N28.1 Cyst of kidney, acquired; Z79.1 Long term (current) use of non-steroidal anti-inflammatories (NSAID); Z90.81 Acquired absence of spleen; Z90.5 Acquired absence of kidney
CPT/HCPCS: 0241U-QW; 20225; 36415; 70450-TC; 71045-TC-FY; 71046-TC-FY; 71250-TC; 76705-TC; 76775-TC; 77074-TC-FY; 80048; 80053; 80061; 80307; 81003; 82378; 82436; 82550; 82570; 82784; 82962; 83036; 83615; 83735; 83883; 84100; 84132; 84155; 84156; 84165; 84300; 84439; 84443; 84484; 85025; 85027; 85045; 85610; 85651; 85730; 86140; 86301; 87070; 87086; 87205; 88300-TC; 93005; 93010; 94640; 97116-GP; 97161-GP; 99285-25; C9803-CS; J1644; U0003; U0005

== ENCOUNTER 2022-04-07 19:52 | Emergency (ER) | payer OTHER ==
[2022-04-07] MEDS ORDERED: LIDOCAINE HCL 2% (50ML VIAL) INF ONE (20:15)
[2022-04-07] MEDS ORDERED: LIDOCAINE HCL 1%, 10 MG/ML (20ML VIAL) ONE (20:16)
[2022-04-07 20:17] VITALS: BP 126/68; PULSE 85; RESP 18; TEMP 98.7; BMI 23.8
== END 2022-04-07 20:55 | disposition home or self-care (01) ==
LOC: FER 19:52
PROC: 0H98XZZ Drainage of Buttock Skin, External Approach (ICD-10-PCS; principal; 2022-04-07)
DX: L02.31 Cutaneous abscess of buttock (principal)
CPT/HCPCS: 87070; 87186; 87205; 99282-25

== ENCOUNTER 2022-05-06 02:17 | Inpatient (IN) | payer OTHER ==
[2022-05-06 02:33] VITALS: BMI 23.4
[2022-05-06] MEDS ORDERED: ACETAMINOPHEN 500 MG TABLET (FP) PO ONE (03:18)
[2022-05-06] MEDS ORDERED: ACETAMINOPHEN 500 MG TABLET (FP) ONE (04:13)
[2022-05-06 04:49] LABS: URINE APPEARANCE CLEAR; URINE BILIRUBIN NEGATIVE (NEGATIVE); URINE COLOR YELLOW; URINE GLUCOSE (UA) NEGATIVE (NEGATIVE); URINE KETONE NEGATIVE (NEGATIVE); URINE LEUK ESTERASE NEGATIVE (NEGATIVE); URINE NITRITE NEGATIVE (NEGATIVE); URINE PROTEIN NEGATIVE (NEGATIVE); URINE UROBILINOGEN 0.2 mg/dL (0.2-1.0)
[2022-05-06 06:35] LABS: HEMATOCRIT 27.1 % (35.4-49); HEMOGLOBIN 8.7 GM/dL (11.7-16.9); MEAN CELL VOLUME 90.7 fl (80-96); MEAN PLT VOLUME 8.7 fl (7.5-11.1); RBC 2.99 M/mm3 (4.00-5.60); RDW 22.7 % (11.9-15.9); WHITE BLOOD COUNT 3.8 K/mm3 (4.0-10.0)
[2022-05-06 06:51] LABS: CALCIUM 8.7 mg/dL (8.5-10.1)
[2022-05-06 06:52] LABS: BLOOD UREA NITROGEN 18.6 mg/dL (7-18)
[2022-05-06 06:55] LABS: CREATININE 0.8 mg/dL (0.55-1.3)
[2022-05-06 06:56] LABS: BILIRUBIN,TOTAL 0.4 mg/dL (0.2-1); TOT PROT 5.6 g/dl (6.4-8.2)
[2022-05-06 07:03] LABS: PLATELET COUNT 25 10^3/uL (134-434)
[2022-05-06] MEDS ORDERED: ACETAMINOPHEN 1000 MG/100 ML BAG IVPB PRN (07:33)
[2022-05-06] MEDS ORDERED: DEXTROSE 5%-NORMAL SALINE 1,000 ML IV SCH (07:45)
[2022-05-06 08:46] LABS: ANISOCYTOSIS 2+; MACROCYTOSIS 0; TARGET CELLS 1+; TEAR DROP CELLS 1+
[2022-05-06 08:49] LABS: INR 0.94 (0.83-1.09); PROTHROMBIN TIME (PATIENT) 10.8 SEC (9.7-13.0)
[2022-05-06 08:52] LABS: ACTIVATED PTT 31.2 SECONDS (25.2-36.5)
[2022-05-06 09:12] LABS: PHOSPHOROUS 3.5 mg/dL (2.5-4.9)
[2022-05-06] MEDS ORDERED: morphine SULFATE 4 MG/ML VIAL ONE (11:54)
[2022-05-06] MEDS ORDERED: ACETAMINOPHEN INJECTION 100 ML IVPB ONE (18:35)
[2022-05-06] MEDS ORDERED: HYDROmorphone HCl 2 MG/ML VIAL IVPUSH PRN (18:41)
[2022-05-06] MEDS ORDERED: PATIENT'S OWN MEDICATION (NON-FORMULARY) (Olmesartan Medoxomil [Olmesartan Medoxomil] 20 M PO SCH (18:45)
[2022-05-06] MEDS ORDERED: amLODIPine BESYLATE 10 MG TABLET (FP) PO ONE (18:53)
[2022-05-06] MEDS ORDERED: ASPIRIN COATED 81 MG TABLET.EC PO SCH (19:00)
[2022-05-06] MEDS ORDERED: amLODIPine BESYLATE 10 MG TABLET (FP) ONE (20:41)
[2022-05-06] MEDS ORDERED: oxyCODONE HCL 5 MG TABLET ONE (20:41)
[2022-05-06] MEDS: oxyCODONE HCL 5 MG TABLET PO PRN (20:44)
[2022-05-07 04:43] VITALS: RESP 18
[2022-05-07] MEDS: LEVOTHYROXINE NA 50 MCG TABLET (FP) PO SCH (06:39)
[2022-05-07] MEDS ORDERED: HYDROmorphone HCl 2 MG/ML VIAL IVPB PRN (08:55)
[2022-05-07 10:19] LABS: INR 1.02 (0.83-1.09); PROTHROMBIN TIME (PATIENT) 11.7 SEC (9.7-13.0)
[2022-05-07 10:24] LABS: HEMATOCRIT 39.4 % (35.4-49); HEMOGLOBIN 12.7 GM/dL (11.7-16.9); MCH 28.3 pg (25.7-33.7); MCHC 32.1 g/dl (32.0-35.9); MEAN PLT VOLUME 9.7 fl (7.5-11.1); PLATELET COUNT 243 10^3/uL (134-434); RBC 4.48 M/mm3 (4.00-5.60); RDW 22.4 % (11.9-15.9); WHITE BLOOD COUNT 11.3 K/mm3 (4.0-10.0)
[2022-05-07] MEDS: TAMSULOSIN HCL 0.4 MG CAP PO SCH (10:26)
[2022-05-07] MEDS: PANTOPRAZOLE 20 MG TABLET PO SCH (10:27)
[2022-05-07] MEDS: MONTELUKAST NA 10 MG TABLET PO SCH (10:28)
[2022-05-07 10:58] LABS: BLOOD UREA NITROGEN 10.7 mg/dL (7-18); CREATININE 0.6 mg/dL (0.55-1.3); MAGNESIUM 1.7 mg/dL (1.8-2.4)
[2022-05-07 10:59] LABS: BILIRUBIN,TOTAL 0.5 mg/dL (0.2-1)
[2022-05-07 11:00] LABS: TOT PROT 5.7 g/dl (6.4-8.2)
[2022-05-07 11:01] LABS: ANISOCYTOSIS 0; HELMET CELLS 0; HOWELL-JOLLY BODIES 0; MACROCYTOSIS 0; OVALOCYTE 0; ROULEAU 0; SICKELED CELLS 0; TARGET CELLS 0; TEAR DROP CELLS 0; TOXIC GRANULATION 0
[2022-05-07] MEDS: oxyCODONE HCL 5 MG TABLET PO PRN ×2 (11:28→17:48)
[2022-05-07 17:35] LABS: BASO % 0.5 % (0-2.0); HEMATOCRIT 37.3 % (35.4-49); HEMOGLOBIN 12.2 GM/dL (11.7-16.9); LYMPH % 16.2 % (8-40); MCH 28.7 pg (25.7-33.7); MCHC 32.6 g/dl (32.0-35.9); MEAN CELL VOLUME 88.1 fl (80-96); MONO % 16.8 % (3.8-10.2); NEUT % 66.5 % (42.8-82.8); PLATELET COUNT 238 10^3/uL (134-434); RBC 4.23 M/mm3 (4.00-5.60); WHITE BLOOD COUNT 12.2 K/mm3 (4.0-10.0)
[2022-05-08] MEDS: oxyCODONE HCL 5 MG TABLET PO PRN (01:13)
[2022-05-08] MEDS: LEVOTHYROXINE NA 50 MCG TABLET (FP) PO SCH (06:46)
[2022-05-08] MEDS ORDERED: oxyCODONE HCL 5 MG TABLET PO PRN (08:49)
[2022-05-08] MEDS ORDERED: oxyCODONE HCL 10 MG SUSTAINED ACTING TABLET PO PRN (08:49)
[2022-05-08] MEDS ORDERED: ACETAMINOPHEN 1000 MG/100 ML BAG IVPB PRN (08:51)
[2022-05-08] MEDS: PANTOPRAZOLE 20 MG TABLET PO SCH (10:29)
[2022-05-08] MEDS: TAMSULOSIN HCL 0.4 MG CAP PO SCH (10:29)
[2022-05-08] MEDS: MONTELUKAST NA 10 MG TABLET PO SCH (10:29)
[2022-05-08] MEDS ORDERED: oxyCODONE HCL 10 MG SUSTAINED ACTING TABLET PO SCH (11:30)
[2022-05-08 12:21] LABS: BASO % 0.5 % (0-2.0); EOS % 0.1 % (0-4.5); HEMATOCRIT 35.2 % (35.4-49); HEMOGLOBIN 11.6 GM/dL (11.7-16.9); LYMPH % 7.4 % (8-40); MCH 28.8 pg (25.7-33.7); MCHC 32.9 g/dl (32.0-35.9); MEAN CELL VOLUME 87.6 fl (80-96); MEAN PLT VOLUME 9.8 fl (7.5-11.1); MONO % 18.8 % (3.8-10.2); NEUT % 73.2 % (42.8-82.8); PLATELET COUNT 224 10^3/uL (134-434); RBC 4.02 M/mm3 (4.00-5.60); RDW 22.2 % (11.9-15.9); WHITE BLOOD COUNT 9.9 K/mm3 (4.0-10.0)
[2022-05-08 12:27] LABS: ALBUMIN 2.5 g/dl (3.4-5.0); CALCIUM 8.6 mg/dL (8.5-10.1); MAGNESIUM 1.9 mg/dL (1.8-2.4)
[2022-05-08 12:28] LABS: BLOOD UREA NITROGEN 17.5 mg/dL (7-18)
[2022-05-08 12:29] LABS: CREATININE 0.8 mg/dL (0.55-1.3); RETICULOCYTES 0.73 % (0.5-1.5)
[2022-05-08 12:31] LABS: BILIRUBIN,TOTAL 0.6 mg/dL (0.2-1); TOT PROT 5.1 g/dl (6.4-8.2)
[2022-05-08 12:32] LABS: PHOSPHOROUS 2.8 mg/dL (2.5-4.9)
[2022-05-08 14:42] VITALS: BP 104/67; PULSE 103; TEMP 97.8
== END 2022-05-08 17:27 | disposition home or self-care (01) | DRG 563 ==
LOC: JER 02:17 → JERBED 06:50 → J6S 21:47
PROVIDERS: ADMIT Internal Medicine; ATTEND Internal Medicine
DX: S42.212A Unspecified displaced fracture of surgical neck of left humerus, initial encounter for closed fracture (principal); C90.00 Multiple myeloma not having achieved remission; E03.9 Hypothyroidism, unspecified; I16.0 Hypertensive urgency; W19.XXXA Unspecified fall, initial encounter; Y93.9 Activity, unspecified; Y92.89 Other specified places as the place of occurrence of the external cause; Y99.9 Unspecified external cause status
CPT/HCPCS: 36415; 70450-TC; 71045-TC-FY; 72125-TC; 72170-TC-FY; 73030-TC-LT-FY; 73060-TC-LT-FY; 73070-TC-LT-FY; 73090-TC-LT-FY; 80053; 81003; 82962; 83010; 83615; 83735; 84100; 84443; 84484; 85025; 85045; 85610; 85730; 87086; 93005; 93010; 97116-GP; 97162-GP; 99285-25; C9803-CS; U0003; U0005

== ENCOUNTER 2023-01-21 16:47 | Emergency (ER) | payer MEDICARE, OTHER ==
[2023-01-21] MEDS ORDERED: SILVER SULFADIAZINE 1% TOP CREAM 50 GM JAR TP ONE (17:05)
[2023-01-21 17:08] VITALS: BP 147/101; PULSE 93; RESP 18; TEMP 98; BMI 23.6
[2023-01-21] MEDS ORDERED: TETANUS AND DIPHTHERIA TOXOID 0.5 ML DISP.SYRIN IM ONE (17:25)
[2023-01-21] MEDS ORDERED: DIPHTH,PERTUSS(ACELL),TET 0.5 ML DISP.SYRIN IM ONE ×2 (17:26→17:34)
[2023-01-21] MEDS ORDERED: SILVER SULFADIAZINE 1% TOP CREAM 50 GM JAR TP SCH (17:30)
== END 2023-01-21 18:09 | disposition home or self-care (01) ==
LOC: FER 16:47
PROC: 2W2SX4Z Dressing of Right Foot using Bandage (ICD-10-PCS; principal; 2023-01-21)
PROC: 3E0234Z Introduction of Serum, Toxoid and Vaccine into Muscle, Percutaneous Approach (ICD-10-PCS; 2023-01-21)
DX: T25.221A Burn of second degree of right foot, initial encounter (principal); T25.222A Burn of second degree of left foot, initial encounter; X10.0XXA Contact with hot drinks, initial encounter
CPT/HCPCS: 16020; 90471; 90715; 99282-25

== ENCOUNTER 2024-02-22 18:16 | Observation (INO) | payer OTHER ==
[2024-02-22] MEDS ORDERED: ACETAMINOPHEN 500 MG TABLET (FP) ONE (19:54)
[2024-02-22] MEDS: ACETAMINOPHEN 500 MG TABLET (FP) PO ONE (19:59)
[2024-02-22 20:03] LABS: HEMATOCRIT 39.4 % (35.4-49); HEMOGLOBIN 13.2 GM/dL (11.7-16.9); MCH 29.7 pg (25.7-33.7); MCHC 33.4 g/dl (32.0-35.9); MEAN CELL VOLUME 88.9 fl (80-96); MEAN PLT VOLUME 10.2 fl (7.5-11.1); PLATELET COUNT 240 10^3/uL (134-434); RBC 4.44 M/mm3 (4.00-5.60); RDW 18.7 % (11.9-15.9)
[2024-02-22 20:05] LABS: INR 0.99 (0.83-1.09); PROTHROMBIN TIME (PATIENT) 11.2 SEC (9.7-13.0)
[2024-02-22 20:06] LABS: POTASSIUM 4.2 mmol/L (3.5-5.1)
[2024-02-22 20:07] LABS: ACTIVATED PTT 34.5 SECONDS (25.2-36.5)
[2024-02-22 20:08] LABS: ALBUMIN 3.8 g/dl (3.4-5.0); CALCIUM 8.9 mg/dL (8.5-10.1)
[2024-02-22 20:13] LABS: BLOOD UREA NITROGEN 27.8 mg/dL (7-18); CREATININE 1.3 mg/dL (0.55-1.3); TOT PROT 6.6 g/dl (6.4-8.2)
[2024-02-22 20:21] LABS: BILIRUBIN,TOTAL 0.5 mg/dL (0.2-1)
[2024-02-23] MEDS ORDERED: morphine CARPU-JECT 2 MG/1 ML DISP.SYRIN IVPUSH PRN (02:11)
[2024-02-23] MEDS ORDERED: MORPHINE SULFATE 2 MG/ML SYRINGE ONE (02:17)
[2024-02-23] MEDS: ACETAMINOPHEN 500 MG TABLET (FP) PO PRN (02:24)
[2024-02-23] MEDS ORDERED: morphine SULFATE 10 MG/5 ML UNIT-DOSE CUP PO PRN ×2 (02:24→02:27)
[2024-02-23] MEDS ORDERED: LEVOTHYROXINE NA 50 MCG TABLET (FP) ONE (09:26)
[2024-02-23] MEDS: LEVOTHYROXINE NA 50 MCG TABLET (FP) PO SCH (09:32)
[2024-02-23] MEDS: ENOXAPARIN NA (PORCINE) 40 MG/0.4 ML DISP.SYRIN SQ SCH (11:00)
[2024-02-23] MEDS: LOSARTAN POTASSIUM 50 MG TABLET PO SCH (11:00)
[2024-02-23] MEDS: PANTOPRAZOLE 20 MG TABLET PO SCH (11:00)
[2024-02-23] MEDS: ASPIRIN COATED 81 MG TABLET.EC PO SCH (11:00)
[2024-02-23] MEDS: TAMSULOSIN HCL 0.4 MG CAP PO SCH (11:00)
[2024-02-23] MEDS ORDERED: ENOXAPARIN NA (PORCINE) 40 MG/0.4 ML DISP.SYRIN SQ ONE (11:50)
[2024-02-23 14:58] LABS: BASO % 1.4 % (0-2.0); EOS % 3.8 % (0-4.5); HEMATOCRIT 34.6 % (35.4-49); HEMOGLOBIN 11.5 GM/dL (11.7-16.9); LYMPH % 17.2 % (8-40); MCH 29.4 pg (25.7-33.7); MCHC 33.2 g/dl (32.0-35.9); MEAN CELL VOLUME 88.6 fl (80-96); MEAN PLT VOLUME 10.7 fl (7.5-11.1); MONO % 16.1 % (3.8-10.2); NEUT % 61.5 % (42.8-82.8); PLATELET COUNT 220 10^3/uL (134-434); RBC 3.91 M/mm3 (4.00-5.60); RDW 18.2 % (11.9-15.9); WHITE BLOOD COUNT 7.9 K/mm3 (4.0-10.0)
[2024-02-23 15:30] LABS: POTASSIUM 4.4 mmol/L (3.5-5.1)
[2024-02-23 15:37] LABS: CALCIUM 8.1 mg/dL (8.5-10.1); CREATININE 1.2 mg/dL (0.55-1.3)
[2024-02-23 15:38] LABS: BILIRUBIN,TOTAL 0.6 mg/dL (0.2-1)
[2024-02-23 15:39] LABS: ALBUMIN 2.9 g/dl (3.4-5.0)
[2024-02-23 15:59] LABS: TOT PROT 5.2 g/dl (6.4-8.2)
[2024-02-23 21:04] VITALS: BMI 17.4
[2024-02-23] MEDS: MONTELUKAST NA 10 MG TABLET PO SCH (22:05)
[2024-02-24] MEDS: ACETAMINOPHEN 325 MG TABLET (FP) PO SCH (01:41)
[2024-02-24] MEDS: oxyCODONE HCL 5 MG TABLET PO SCH (01:42)
[2024-02-24 10:33] LABS: HEMATOCRIT 32.8 % (35.4-49); HEMOGLOBIN 11.2 GM/dL (11.7-16.9); MCH 29.8 pg (25.7-33.7); MCHC 34.1 g/dl (32.0-35.9); MEAN CELL VOLUME 87.6 fl (80-96); PLATELET COUNT 195 10^3/uL (134-434); RBC 3.74 M/mm3 (4.00-5.60); WHITE BLOOD COUNT 8.7 K/mm3 (4.0-10.0)
[2024-02-24 10:44] LABS: POTASSIUM 4.1 mmol/L (3.5-5.1)
[2024-02-24 10:47] LABS: ALBUMIN 2.7 g/dl (3.4-5.0); BLOOD UREA NITROGEN 17.7 mg/dL (7-18); CALCIUM 8.1 mg/dL (8.5-10.1); MAGNESIUM 1.6 mg/dL (1.8-2.4)
[2024-02-24 10:51] LABS: CREATININE 1.1 mg/dL (0.55-1.3)
[2024-02-24] MEDS: DOCUSATE SODIUM 100 MG CAPSULE (FP) PO PRN (10:51)
[2024-02-24 10:52] LABS: BILIRUBIN,TOTAL 0.7 mg/dL (0.2-1); PHOSPHOROUS 2.8 mg/dL (2.5-4.9); TOT PROT 5.1 g/dl (6.4-8.2)
[2024-02-24] MEDS: LIDOCAINE HCL 5% TOP OINTMENT 50 GM TUBE TP ONE (10:59)
[2024-02-24] MEDS ORDERED: MAGNESIUM 1GM/D5W 100ML - 100 ML IVPB IVPB ONE (11:33)
[2024-02-24 14:39] VITALS: RESP 18
[2024-02-25] MEDS: oxyCODONE HCL 5 MG TABLET PO PRN (11:24)
[2024-02-26] MEDS: POLYETHYLENE GLYCOL (HEALTHYLAX) 3350 17 GM PACKET PO SCH (11:54)
[2024-02-26] MEDS: SENNOSIDES 8.8 MG/5 ML SYRUP PO SCH (21:56)
[2024-02-27] MEDS: GLYCERIN 1 RECTAL SUPPOSITORY, ADULT RC ONE (12:48)
[2024-02-27 14:32] VITALS: BP 121/69; PULSE 78; TEMP 98.1
[2024-02-27] MEDS: ACETAMINOPHEN 325 MG TABLET (FP) PO ONE (16:51)
== END 2024-02-27 17:00 ==
LOC: JER 18:16 → UNDOADMOB 02-23 → JERBED 02-23 → OBSVTOIN 02-23 00:38 → INTOOBSV 02-23 00:38 → JERBED 02-23 19:34 → J6S 02-23 19:34 → JERBED 02-24 09:54
PROVIDERS: ADMIT Internal Medicine; ATTEND Internal Medicine
PROC: 3E023GC Introduction of Other Therapeutic Substance into Muscle, Percutaneous Approach (ICD-10-PCS; principal; 2024-02-24)
DX: S82.102A Unspecified fracture of upper end of left tibia, initial encounter for closed fracture (principal); W11.XXXA Fall on and from ladder, initial encounter; Y93.89 Activity, other specified; Y92.007 Garden or yard of unspecified non-institutional (private) residence as the place of occurrence of the external cause; C90.00 Multiple myeloma not having achieved remission; I10 Essential (primary) hypertension; E03.9 Hypothyroidism, unspecified; Z90.49 Acquired absence of other specified parts of digestive tract; Z87.898 Personal history of other specified conditions
CPT/HCPCS: 36415; 70450-TC; 72125-TC; 72170-TC-FY; 73502-TC-LT-FY; 73552-TC-LT-FY; 73562-TC-LT-FY; 73590-TC-LT-FY; 73700-TC-RT; 80053; 82550; 82553; 83735; 84100; 84484; 85025; 85027; 85610; 85730; 87081; 93005; 93010; 96372; 97116-GP; 97162-GP; 99285-25; G0378

== ENCOUNTER 2024-06-05 15:08 | Inpatient (IN) | payer OTHER ==
[2024-06-05 15:19] VITALS: BMI 17.2
[2024-06-05 16:34] LABS: BASO % 2.9 % (0-2.0); EOS % 0.2 % (0-4.5); HEMATOCRIT 40.8 % (35.4-49); HEMOGLOBIN 13.5 GM/dL (11.7-16.9); LYMPH % 22.5 % (8-40); MCHC 33.1 g/dl (32.0-35.9); MEAN CELL VOLUME 87.6 fl (80-96); MEAN PLT VOLUME 9.4 fl (7.5-11.1); MONO % 15.1 % (3.8-10.2); NEUT % 59.3 % (42.8-82.8); PLATELET COUNT 284 10^3/uL (134-434); RBC 4.66 M/mm3 (4.00-5.60); RDW 20.2 % (11.9-15.9); WHITE BLOOD COUNT 8.2 K/mm3 (4.0-10.0)
[2024-06-05] MEDS ORDERED: ACETAMINOPHEN 325 MG TABLET (FP) ONE (16:34)
[2024-06-05] MEDS: ACETAMINOPHEN 325 MG TABLET (FP) PO ONE (16:38)
[2024-06-05 16:52] LABS: POTASSIUM 4.7 mmol/L (3.5-5.1)
[2024-06-05 16:54] LABS: ALBUMIN 3.8 g/dl (3.4-5.0); BLOOD UREA NITROGEN 24.7 mg/dL (7-18); CALCIUM 9.5 mg/dL (8.5-10.1); MAGNESIUM 1.7 mg/dL (1.8-2.4)
[2024-06-05 16:59] LABS: BILIRUBIN,TOTAL 0.4 mg/dL (0.2-1); TOT PROT 6.8 g/dl (6.4-8.2)
[2024-06-05 19:32] LABS: URINE APPEARANCE CLEAR; URINE BILIRUBIN NEGATIVE (NEGATIVE); URINE COLOR YELLOW; URINE GLUCOSE (UA) NEGATIVE (NEGATIVE); URINE KETONE 1+ (NEGATIVE); URINE LEUK ESTERASE NEGATIVE (NEGATIVE); URINE NITRITE NEGATIVE (NEGATIVE); URINE PROTEIN TRACE (NEGATIVE); URINE UROBILINOGEN 0.2 mg/dL (0.2-1.0)
[2024-06-05] MEDS ORDERED: MAGNESIUM SULFATE IN WATER 2 GM/50 ML IVPB IVPB ONE (21:23)
[2024-06-05] MEDS: MAGNESIUM SULF 50% (8.12 MEQ/2 ML-1 GM VIAL) IVPB ONE (21:31)
[2024-06-05] MEDS: FOLIC ACID 5 MG/1 ML SQ ONE (22:28)
[2024-06-05] MEDS ORDERED: LIDOCAINE 4% PATCH TP ONE (22:44)
[2024-06-05] MEDS: LIDOCAINE 4% PATCH TP ONE (22:48)
[2024-06-05] MEDS: LIDOCAINE PATCH REMOVAL MC SCH (22:49)
[2024-06-06] MEDS: ACETAMINOPHEN 1000 MG/100 ML BAG IVPB PRN (05:20)
[2024-06-06] MEDS: ENOXAPARIN NA (PORCINE) 40 MG/0.4 ML DISP.SYRIN SQ SCH (09:10)
[2024-06-06] MEDS: FAMOTIDINE 20 MG TABLET PO SCH (09:10)
[2024-06-06 09:21] LABS: HEMATOCRIT 34.7 % (35.4-49); HEMOGLOBIN 11.1 GM/dL (11.7-16.9); MCH 28.2 pg (25.7-33.7); MCHC 32.1 g/dl (32.0-35.9); MEAN CELL VOLUME 87.6 fl (80-96); MEAN PLT VOLUME 9.9 fl (7.5-11.1); PLATELET COUNT 257 10^3/uL (134-434); RBC 3.96 M/mm3 (4.00-5.60); RDW 19.6 % (11.9-15.9); WHITE BLOOD COUNT 6.1 K/mm3 (4.0-10.0)
[2024-06-06 09:33] LABS: POTASSIUM 4.3 mmol/L (3.5-5.1)
[2024-06-06 09:37] LABS: BLOOD UREA NITROGEN 21.6 mg/dL (7-18)
[2024-06-06 09:41] LABS: CALCIUM 8.6 mg/dL (8.5-10.1)
[2024-06-06 09:43] LABS: BILIRUBIN,TOTAL 0.4 mg/dL (0.2-1); TOT PROT 5.3 g/dl (6.4-8.2)
[2024-06-06] MEDS ORDERED: FAMOTIDINE 20 MG TABLET PO SCH (10:00)
[2024-06-06 11:32] LABS: ALBUMIN 2.9 g/dl (3.4-5.0)
[2024-06-06] MEDS: LEVOTHYROXINE NA 50 MCG TABLET (FP) PO SCH (18:49)
[2024-06-07 08:04] LABS: HEMATOCRIT 35.2 % (35.4-49); HEMOGLOBIN 11.6 GM/dL (11.7-16.9); MCH 28.8 pg (25.7-33.7); MCHC 32.9 g/dl (32.0-35.9); MEAN CELL VOLUME 87.5 fl (80-96); PLATELET COUNT 284 10^3/uL (134-434); RBC 4.02 M/mm3 (4.00-5.60); RDW 19.7 % (11.9-15.9); WHITE BLOOD COUNT 6.6 K/mm3 (4.0-10.0)
[2024-06-07 08:28] LABS: POTASSIUM 4.3 mmol/L (3.5-5.1)
[2024-06-07 08:42] LABS: ALBUMIN 2.7 g/dl (3.4-5.0); BLOOD UREA NITROGEN 21.3 mg/dL (7-18); CREATININE 0.8 mg/dL (0.55-1.3)
[2024-06-07 08:43] LABS: BILIRUBIN,TOTAL 0.3 mg/dL (0.2-1); TOT PROT 5.3 g/dl (6.4-8.2)
[2024-06-07 08:44] LABS: CALCIUM 8.2 mg/dL (8.5-10.1); MAGNESIUM 1.6 mg/dL (1.8-2.4)
[2024-06-07 08:52] LABS: INR 1.12 (0.83-1.09); PROTHROMBIN TIME (PATIENT) 12.2 SEC (9.7-13.0)
[2024-06-07 10:13] LABS: ANISOCYTOSIS 2+; MACROCYTOSIS 2+
[2024-06-07] MEDS: LIDOCAINE 5% TOPICAL PATCH TP SCH (10:51)
[2024-06-07] MEDS: MAGNESIUM SULFATE IN WATER 2 GM/50 ML IVPB IVPB ONE (11:14)
[2024-06-07] MEDS: METHYL SALICYLATE/MENTHOL 30 GM TUBE TP SCH ×2 (13:09→21:16)
[2024-06-07] MEDS: MAG HYDROX/AL HYDROX/SIMETH 30 ML UNIT-DOSE CUP PO SCH ×3 (13:10→19:12)
[2024-06-07] MEDS: LOSARTAN POTASSIUM 25 MG TABLET PO ONE (15:00)
[2024-06-07] MEDS: LIDOCAINE PATCH REMOVAL MC SCH (21:16)
[2024-06-07] MEDS ORDERED: LIDOCAINE PATCH REMOVAL MC SCH (22:00)
[2024-06-08] MEDS: ACETAMINOPHEN 1000 MG/100 ML BAG IVPB ONE (03:33)
[2024-06-08] MEDS: LEVOTHYROXINE NA 50 MCG TABLET (FP) PO SCH (06:28)
[2024-06-08] MEDS: FAMOTIDINE 20 MG TABLET PO SCH (09:30)
[2024-06-08] MEDS: LIDOCAINE 5% TOPICAL PATCH TP SCH (09:30)
[2024-06-08] MEDS: LOSARTAN POTASSIUM 25 MG TABLET PO SCH (09:30)
[2024-06-08] MEDS: ENOXAPARIN NA (PORCINE) 40 MG/0.4 ML DISP.SYRIN SQ SCH (09:48)
[2024-06-08 09:53] LABS: EOS % 1.1 % (0-4.5); HEMATOCRIT 36.9 % (35.4-49); LYMPH % 25.7 % (8-40); MCH 28.4 pg (25.7-33.7); MCHC 32.5 g/dl (32.0-35.9); MEAN CELL VOLUME 87.3 fl (80-96); MEAN PLT VOLUME 9.5 fl (7.5-11.1); MONO % 19.8 % (3.8-10.2); NEUT % 49.4 % (42.8-82.8); PLATELET COUNT 332 10^3/uL (134-434); RBC 4.23 M/mm3 (4.00-5.60); RDW 19.9 % (11.9-15.9); WHITE BLOOD COUNT 8.1 K/mm3 (4.0-10.0)
[2024-06-08 09:54] LABS: INR 1.04 (0.83-1.09); PROTHROMBIN TIME (PATIENT) 11.4 SEC (9.7-13.0)
[2024-06-08 11:06] LABS: POTASSIUM 4.2 mmol/L (3.5-5.1)
[2024-06-08 11:12] LABS: ALBUMIN 2.8 g/dl (3.4-5.0); CALCIUM 8.8 mg/dL (8.5-10.1); MAGNESIUM 1.7 mg/dL (1.8-2.4)
[2024-06-08 11:15] LABS: BILIRUBIN,TOTAL 0.3 mg/dL (0.2-1); CREATININE 0.7 mg/dL (0.55-1.3); TOT PROT 5.7 g/dl (6.4-8.2)
[2024-06-08] MEDS: ACETAMINOPHEN 500 MG TABLET (FP) PO SCH (16:52)
[2024-06-08] MEDS ORDERED: oxyCODONE HCL 5 MG TABLET PO PRN (19:03)
[2024-06-08] MEDS: oxyCODONE HCL 10 MG SUSTAINED ACTING TABLET PO SCH (19:46)
[2024-06-09 09:35] LABS: BASO % 3.7 % (0-2.0); EOS % 2.7 % (0-4.5); HEMATOCRIT 38.6 % (35.4-49); HEMOGLOBIN 12.4 GM/dL (11.7-16.9); LYMPH % 29.4 % (8-40); MCH 28.4 pg (25.7-33.7); MCHC 32.2 g/dl (32.0-35.9); MEAN CELL VOLUME 88.1 fl (80-96); MEAN PLT VOLUME 9.5 fl (7.5-11.1); MONO % 19.3 % (3.8-10.2); NEUT % 44.9 % (42.8-82.8); PLATELET COUNT 363 10^3/uL (134-434); RBC 4.38 M/mm3 (4.00-5.60); WHITE BLOOD COUNT 7.9 K/mm3 (4.0-10.0)
[2024-06-09 09:39] LABS: INR 1.04 (0.83-1.09); PROTHROMBIN TIME (PATIENT) 11.3 SEC (9.7-13.0)
[2024-06-09 09:50] LABS: POTASSIUM 4.2 mmol/L (3.5-5.1)
[2024-06-09 10:06] LABS: BLOOD UREA NITROGEN 18.9 mg/dL (7-18)
[2024-06-09 10:07] LABS: ALBUMIN 2.9 g/dl (3.4-5.0)
[2024-06-09 10:10] LABS: CREATININE 0.7 mg/dL (0.55-1.3)
[2024-06-09 10:12] LABS: BILIRUBIN,TOTAL 0.5 mg/dL (0.2-1)
[2024-06-09 10:13] LABS: TOT PROT 5.8 g/dl (6.4-8.2)
[2024-06-09] MEDS: LIDOCAINE 4% PATCH TP SCH (16:54)
[2024-06-09] MEDS: LIDOCAINE PATCH REMOVAL MC SCH (21:20)
[2024-06-11] MEDS: oxyCODONE HCL 5 MG TABLET PO PRN (05:45)
[2024-06-11] MEDS: DOCUSATE SODIUM 100 MG CAPSULE (FP) PO SCH (09:15)
[2024-06-11] MEDS: TOLNAFTATE 1% CREAM 15 GM TUBE TP SCH (20:37)
[2024-06-12 05:01] VITALS: PULSE 79
[2024-06-12 10:10] VITALS: BP 131/80; RESP 19; TEMP 97.7
== END 2024-06-12 11:45 | disposition home or self-care (01) | DRG 563 ==
LOC: JER 15:08 → JERBED 19:31 → OBSVTOIN 22:24 → J4S 06-06 02:08 → J6S 06-07 17:01
PROVIDERS: ADMIT Internal Medicine; ATTEND Internal Medicine
DX: S42.024A Nondisplaced fracture of shaft of right clavicle, initial encounter for closed fracture (principal); C90.00 Multiple myeloma not having achieved remission; I10 Essential (primary) hypertension; E03.9 Hypothyroidism, unspecified; D32.9 Benign neoplasm of meninges, unspecified; K21.9 Gastro-esophageal reflux disease without esophagitis; E83.42 Hypomagnesemia; R29.6 Repeated falls; W19.XXXA Unspecified fall, initial encounter; Y93.9 Activity, unspecified; Y92.89 Other specified places as the place of occurrence of the external cause; Y99.9 Unspecified external cause status
CPT/HCPCS: 0241U-QW; 36415; 70450-TC; 71045-TC-FY; 73030-TC-RT-FY; 73200-TC-RT; 80053; 81003; 82306; 82550; 83735; 84484; 85025; 85027; 85610; 93005; 93010; 93306-TC; 97116-GP; 97162-GP; 99285-25; G0378; J0131

== ENCOUNTER 2024-09-26 13:31 | Emergency (ER) | payer OTHER ==
[2024-09-26 13:45] VITALS: BP 157/79; PULSE 87; RESP 20; TEMP 99; BMI 16.9
== END 2024-09-26 15:21 | disposition home or self-care (01) ==
LOC: FER 13:31
DX: J18.9 Pneumonia, unspecified organism (principal); R05.9 Cough, unspecified; R09.81 Nasal congestion
CPT/HCPCS: 0241U-QW; 71046-TC-FY; 99284-25

== ENCOUNTER 2025-01-29 13:27 | Inpatient (IN) | payer OTHER ==
[2025-01-29 13:33] VITALS: BMI 24.2
[2025-01-29] MEDS ORDERED: FAMOTIDINE 20 MG/50 ML IVPB 20 MG/50 ML MG IVPB ONE (13:51)
[2025-01-29] MEDS ORDERED: ONDANSETRON 4 MG/2 ML VIAL ONE (14:24)
[2025-01-29] MEDS ORDERED: ACETAMINOPHEN INJECTION 100 ML ONE (14:24)
[2025-01-29] MEDS: ACETAMINOPHEN 1000 MG/100 ML BAG IVPB ONE (14:44)
[2025-01-29] MEDS: ONDANSETRON 4 MG/2 ML VIAL IVPUSH ONE (14:45)
[2025-01-29] MEDS: SODIUM CHLORIDE 0.9% 500 ML INFUS.BAG IV ONE (14:45)
[2025-01-29 15:07] LABS: ABSOLUTE IMMATURE GRANULOCYTES 0.04 x10^3/uL (0.0-0.031); BASOPHILS # 0.10 x10^3/uL (0.01-0.08); EOSINOPHIL % 0.9 % (0.8-7.0); EOSINOPHILS # 0.07 x10^3/uL (0.04-0.54); MCHC 32.6 g/dl (32.3-36.5); MEAN CELL VOLUME 84.9 fl (79.0-92.2); MEAN PLT VOLUME 11.6 fl (9.4-12.4); MONOCYTE # 0.61 x10^3/uL (0.30-0.82); MONOCYTE % 7.8 % (5.3-12.2); RDW 22.5 % (12.6-16.6)
[2025-01-29 15:22] LABS: GLUCOSE,RANDOM 78.0 mg/dL (74-106); TOT PROT 6.4 g/dl (6.4-8.2)
[2025-01-29 15:23] LABS: CO2 25.0 mmol/L (21-32)
[2025-01-29 15:25] LABS: ALK PHOS 133.0 U/L (40-150)
[2025-01-29 15:28] LABS: CREATININE 1.21 mg/dL (0.55-1.3); SGOT/AST 20.0 U/L (5-34); SGPT/ALT 15.0 U/L (0-55)
[2025-01-29 16:29] LABS: URINE APPEARANCE CLEAR; URINE COLOR DK YELLOW
[2025-01-29 16:30] LABS: URINE BILIRUBIN NEGATIVE (NEGATIVE); URINE GLUCOSE (UA) NEGATIVE (NEGATIVE); URINE KETONE 2+ (NEGATIVE); URINE LEUK ESTERASE NEGATIVE (NEGATIVE); URINE NITRITE NEGATIVE (NEGATIVE); URINE PROTEIN 1+ (NEGATIVE); URINE UROBILINOGEN 0.2 mg/dL (0.2-1.0)
[2025-01-29] MEDS: HEPARIN NA (PORCINE) 5,000 UNITS/ML 1ML VIAL SQ SCH (22:02)
[2025-01-30] MEDS: LEVOTHYROXINE NA 50 MCG TABLET (FP) PO SCH (06:05)
[2025-01-30 07:05] LABS: MCHC 33.1 g/dl (32.3-36.5); MEAN CELL VOLUME 83.9 fl (79.0-92.2); MEAN PLT VOLUME 11.6 fl (9.4-12.4); RDW 22.2 % (12.6-16.6)
[2025-01-30 07:11] LABS: INR 1.07 (0.83-1.09); PROTHROMBIN TIME (PATIENT) 11.7 SEC (9.7-13.0)
[2025-01-30 07:14] LABS: ACTIVATED PTT 28.4 SECONDS (25.2-36.5)
[2025-01-30 07:38] LABS: GLUCOSE,RANDOM 73.0 mg/dL (74-106)
[2025-01-30 07:39] LABS: TOT PROT 4.7 g/dl (6.4-8.2)
[2025-01-30 07:40] LABS: CO2 24.0 mmol/L (21-32)
[2025-01-30 07:42] LABS: ALK PHOS 86.0 U/L (40-150)
[2025-01-30 07:44] LABS: SGOT/AST 16.0 U/L (5-34); SGPT/ALT 9.0 U/L (0-55)
[2025-01-30 07:45] LABS: CREATININE 1.17 mg/dL (0.55-1.3)
[2025-01-30] MEDS: LOSARTAN POTASSIUM 50 MG TABLET PO SCH (10:02)
[2025-01-30] MEDS: PANTOPRAZOLE 40 MG TABLET PO SCH (10:02)
[2025-01-30] MEDS: LENALIDOMIDE 10 MG PO SCH (12:13)
[2025-01-30] MEDS ORDERED: LYTES/YERBA SANTA 240 ML BOTTLE MM ONE (13:53)
[2025-01-30] MEDS ORDERED: ACETAMINOPHEN 325 MG TABLET (FP) PO PRN (16:08)
[2025-01-30] MEDS: DEXTROSE 5%-NORMAL SALINE 1,000 ML IV SCH (16:31)
[2025-01-30] MEDS: TAMSULOSIN HCL 0.4 MG CAP PO SCH (21:12)
[2025-01-30] MEDS: CLOTRIMAZOLE 1% CREAM TP SCH (22:18)
[2025-01-31] MEDS: LENALIDOMIDE 10 MG PO ONE (02:48)
[2025-01-31] MEDS: LOSARTAN POTASSIUM 50 MG TABLET PO SCH (10:28)
[2025-01-31] MEDS: MULTIVITAMINS (DAILY MVI) TABLET (FP) PO SCH (10:28)
[2025-01-31 11:47] LABS: ABSOLUTE IMMATURE GRANULOCYTES 0.01 x10^3/uL (0.0-0.031); BASOPHILS # 0.16 x10^3/uL (0.01-0.08); EOSINOPHIL % 5.3 % (0.8-7.0); EOSINOPHILS # 0.24 x10^3/uL (0.04-0.54); MCHC 32.2 g/dl (32.3-36.5); MEAN CELL VOLUME 86.5 fl (79.0-92.2); MEAN PLT VOLUME 12.2 fl (9.4-12.4); MONOCYTE # 0.62 x10^3/uL (0.30-0.82); MONOCYTE % 13.6 % (5.3-12.2); RDW 22.1 % (12.6-16.6)
[2025-01-31 12:04] LABS: GLUCOSE,RANDOM 84.0 mg/dL (74-106); TOT PROT 4.9 g/dl (6.4-8.2)
[2025-01-31 12:05] LABS: CO2 24.0 mmol/L (21-32)
[2025-01-31 12:07] LABS: ALK PHOS 96.0 U/L (40-150)
[2025-01-31 12:09] LABS: SGOT/AST 20.0 U/L (5-34); SGPT/ALT 14.0 U/L (0-55)
[2025-01-31 12:10] LABS: CREATININE 0.93 mg/dL (0.55-1.3)
[2025-01-31] MEDS: MAGNESIUM OXIDE 400 MG TABLET (FP) PO ONE (17:10)
[2025-01-31 18:59] VITALS: TEMP 97.5
[2025-01-31] MEDS: LENALIDOMIDE 10 MG PO SCH (21:52)
[2025-02-01 08:27] LABS: ABSOLUTE IMMATURE GRANULOCYTES 0.01 x10^3/uL (0.0-0.031); BASOPHILS # 0.11 x10^3/uL (0.01-0.08); EOSINOPHIL % 4.3 % (0.8-7.0); EOSINOPHILS # 0.21 x10^3/uL (0.04-0.54); MCHC 33.9 g/dl (32.3-36.5); MEAN CELL VOLUME 83.1 fl (79.0-92.2); MEAN PLT VOLUME 11.4 fl (9.4-12.4); MONOCYTE # 0.66 x10^3/uL (0.30-0.82); MONOCYTE % 13.6 % (5.3-12.2); RDW 21.8 % (12.6-16.6)
[2025-02-01 08:46] LABS: GLUCOSE,RANDOM 81.0 mg/dL (74-106); TOT PROT 5.0 g/dl (6.4-8.2)
[2025-02-01 08:47] LABS: CO2 26.0 mmol/L (21-32)
[2025-02-01 08:49] LABS: ALK PHOS 96.0 U/L (40-150)
[2025-02-01 08:51] LABS: SGOT/AST 16.0 U/L (5-34); SGPT/ALT 11.0 U/L (0-55)
[2025-02-01 08:52] LABS: CREATININE 0.96 mg/dL (0.55-1.3)
[2025-02-01] MEDS ORDERED: MAGNESIUM SULF 50% (8.12 MEQ/2 ML-1 GM VIAL) IVPB ONE (09:15)
[2025-02-01 10:16] VITALS: BP 114/96; PULSE 78; RESP 17
[2025-02-01] MEDS: MAGNESIUM SULFATE IN WATER 2 GM/50 ML IVPB IVPB ONE (10:17)
[2025-02-01] MEDS: MAGNESIUM OXIDE 400 MG TABLET (FP) PO ONE (11:15)
== END 2025-02-01 11:25 | disposition home health service (06) | DRG 389 ==
LOC: JER 13:27 → JERBED 17:53 → J8W 21:56
PROVIDERS: ADMIT Student in an Organized Health Care Education/Training Program; ATTEND Nurse Practitioner Acute Care
DX: K56.600 Partial intestinal obstruction, unspecified as to cause (principal); C90.00 Multiple myeloma not having achieved remission; D84.9 Immunodeficiency, unspecified; I10 Essential (primary) hypertension; E05.90 Thyrotoxicosis, unspecified without thyrotoxic crisis or storm; E03.9 Hypothyroidism, unspecified; F12.90 Cannabis use, unspecified, uncomplicated
CPT/HCPCS: 36415; 71045-TC-FY; 74019-TC-FY; 74177-TC; 80053; 81003; 83605; 83690; 83735; 84100; 84436; 84443; 84484; 85025; 85610; 85730; 87086; 87637-QW; 93005; 93010; 97116-GP; 97162-GP; 99285-25; Q9967